=== PATIENT | female | born 1975 | race Caucasian/White ===

== ENCOUNTER 2016-04-22 18:29 | Emergency (ER) | payer BC ==
[~2016-04-22] VITALS: Ht 157.5 cm; Wt 84.4 kg
[~2016-04-22 18:29] MED LIST: ASPI-390 PO; FLUO40CA8 PO; IBUP-103 PO; PROP20TA67 PO
[2016-04-22 18:35] VITALS: Ht 157.5 cm; Wt 84.4 kg
[2016-04-22] MEDS ORDERED: SODIUM CHLORIDE 0.9% 1000ML 1,000 ML IV STA ×2 (19:40→19:44)
[2016-04-22] MEDS ORDERED: ONDANSETRON INJ 2 MG/ML 2 ML VIAL IV STA (19:44)
[2016-04-22] MEDS ORDERED: FENTANYL CITRATE INJ 50 MCG/1 ML 2 ML VIAL IV PRN (19:45)
--- NOTE | 2016-04-22 19:46 | EMERGENCY ROOM VISIT NOTE ---
History Report prepared by Mayra: Ramila Maya Under the Supervision of: Dr. Huey Castillo D.O. First contact with patient: 19:36 Chief Complaint: ABDOMINAL PAIN Stated Complaint: LOWER LEFT QUADRANT PAIN Nursing Triage Summary: Patient ambulatory to triage, states "I am having left lower quadrant pain. I have had it off and on for several months. I thought it was an ovarian cyst. I had severe pain with my period last month. Last night, I had an episode of diarrhea last night and the pain has been constant since then. I was seen at my PCP's office and they sent me here for evaluation." Patient is now unable to pass gas or stools. Patient has had five previous abdominal surgeries. Patient has had bowel obstructions. Patient reports belching a lot today. History of Present Illness The patient is a 40 year old female who presents to the Emergency Room with complaints of constant left lower quadrant abdominal pain worsening last night. The patient states that she has been experiencing this pain intermittently for the past several months. Last week she experienced her menstrual cycle which increased and worsened the pain. Last night the patient has an episode of diarrhea and since then the pain has been constant instead of the usual intermittent. She did see her PCP today and was referred to the ED. The patient does have a history of bowel obstructions, hernias and ovarian cyst. Her PCP checked for bowel obstruction and ovarian cyst which were found to be negative. She denies chest pain, trouble breathing, shortness of breath, blood thinner use , blood in stool or urine, or diverticulitis history. Source of History: patient Onset: last night Position: abdomen (LLQ) Timing: constant, worsening Associated Symptoms: + diarrhea, No SOB, No chest pain Note: Patient denies blood in stool or urine. Review of Systems See HPI for pertinent positives & negatives. A total of 10 systems reviewed and were otherwise negative. Past Medical & Surgical Medical Problems: (1) Depression (2) History of small bowel obstruction (3) Infectious mononucleosis (4) Lumbago (5) ovarian cyst (6) Reactive airway disease Surgical Problems: (1) H/O reduction mammoplasty (2) H/O umbilical hernia repair (3) History of colposcopy (4) S/P appendectomy (5) S/P cholecystectomy (6) S/p decompression of small bowel (7) S/P tubal ligation Family History Diabetes mellitus MGF PGF FH: CAD (coronary artery disease) MGF Hypertension MGF Social History Smoking Status: Never Smoker Alcohol Use: occasionally Marital Status: Housing Status: lives with significant other Occupation Status: employed Current/Historical Medications Scheduled PRN Propranolol (Inderal), 20 MG PO DAILY PRN for Anxiety Allergies Coded Allergies: Morphine (Verified Allergy, Severe, SHORTNESS OF BREATH, 04/22/16) Tolerates hydromorphone Sulfa Antibiotics (Verified Allergy, Severe, THROAT SWELLS, 04/22/16) Penicillins (Verified Allergy, Intermediate, rash, 04/22/16) Prochlorperazine (Verified Adverse Reaction, Intermediate, anxiety, ) Physical Exam Vital Signs Date Time Temp Pulse Resp B/P Pulse Ox O2 Delivery O2 Flow Rate FiO2 04/22/16 23:19 85 18 113/72 96 Room Air 04/22/16 23:08 36.9 80 18 116/60 97 04/22/16 21:52 102 04/22/16 21:41 85 18 116/60 97 Room Air 04/22/16 18:35 36.9 95 20 134/86 98 Room Air Physical Exam GENERAL: Patient is awake, alert, and in no acute distress. Patient is resting comfortably and showing no signs of anxiety EYES: The conjunctivae are clear. The pupils are round and reactive. EARS, NOSE, MOUTH AND THROAT: The nose is without any evidence of any deformity. Mucous membranes are moist tongue is midline NECK: The neck is nontender and supple. RESPIRATORY: Normal respiratory effort is noted there is no evidence of wheezing rhonchi or rales CARDIOVASCULAR: Regular rate and rhythm noted there no murmurs rubs or gallops normal S1 normal S2 GASTROINTESTINAL: Mildly distended but soft, left lower quadrant tenderness, no significant guarding or rigidity. BACK: No midline tenderness or or step-off noted range of motion in flexion extension as well as rotation no signs of muscle spasm noted MUSCULOSKELETAL/EXTREMITIES: There is no evidence of gross deformity full range of motion is noted in the hips and shoulders SKIN: There is no obvious evidence of any rash. There are no petechiae, pallor or cyanosis noted. NEUROLOGIC: Patient is awake alert and oriented x3 Medical Decision & Procedures ER Provider Diagnostic Interpretation: X ray results and stated below per my interpretation and radiology interpretation. Other radiology results per my review and radiologist interpretation: SINGLE VIEW CHEST CLINICAL HISTORY: Generalized abdominal pain. FINDINGS: An AP, portable, upright chest radiograph is compared to study dated 12/12/2015 and correlated with chest CT dated 01/31/2015. The examination is degraded by portable technique and patient rotation. The cardiomediastinal silhouette is unremarkable. The lungs and pleural spaces are clear. No pneumothorax is seen. The bony thorax is grossly intact. IMPRESSION: No active disease in the chest. Electronically signed by: Marco A Gonzales M.D. 04/22/2016 7:55 PM Dictated Date/Time: 04/22/2016 7:[address] SCAN OF THE ABDOMEN AND PELVIS WITHOUT IV CONTRAST CLINICAL HISTORY: Left flank pain. COMPARISON STUDY: Multiple prior abdominal CT scans, most recently dated 05/24/2015. TECHNIQUE: CT scan of the abdomen and pelvis is performed from the lung bases to the proximal femora. Images are reviewed in the axial, sagittal, and coronal planes. IV contrast was not administered for this examination as per the referring clinician. Note that the examination was performed in suboptimal fashion without IV contrast. Automated dose control exposure was utilized. CT DOSE: 512.41 mGy.cm FINDINGS: Lung bases: The heart is normal in size and without pericardial effusion. The lung bases are clear. There is a tiny hiatal hernia. Liver: The unenhanced liver is normal in size, contour, and attenuation. There is no intrahepatic biliary ductal dilatation. Gallbladder: Surgically absent noting clips in the gallbladder fossa. Spleen: Normal in size and attenuation. Pancreas: Unremarkable. Adrenal glands: Unremarkable. Kidneys: The unenhanced kidneys are normal in size and without hydronephrosis. There are no renal calculi identified. There is no evidence of contour deforming renal mass lesion. Abdominal vasculature: The abdominal aorta is normal in course and caliber. Bowel: The small bowel and colon are normal in course and caliber. The appendix is not identified and reported surgically absent. Peritoneum: There is no intraperitoneal free air or abdominal ascites. There is a fat-containing umbilical hernia. There is a small fat-containing hernia in the right pelvis seen on image #265, possibly incisional. Lymphadenopathy: None. Pelvic viscera: The bladder, uterus, and adnexa are normal as visualized. There are bilateral ovarian follicles. Skeletal structures: No lytic or blastic lesions are seen. A bone island is incidentally noted in the left ilium. IMPRESSION: 1. Suboptimal examination without oral and IV contrast. 2. There are no acute infectious or inflammatory findings in the abdomen or pelvis. 3. Additional findings as above. Electronically signed by: Marco A Gonzales M.D. 04/22/2016 8:12 PM Dictated Date/Time: 04/22/2016 8:06 PM Laboratory Results 04/22/16 21:16 Red Blood Count 4.48, Mean Corpuscular Volume 85.0, Mean Corpuscular Hemoglobin 29.0, Mean Corpuscular Hemoglobin Concent 34.1, Mean Platelet Volume 9.8, Neutrophils (%) (Auto) 63.9, Lymphocytes (%) (Auto) 26.8, Monocytes (%) (Auto) 7.1, Eosinophils (%) (Auto) 1.6, Basophils (%) (Auto) 0.4, Neutrophils # (Auto) 6.15, Lymphocytes # (Auto) 2.58, Monocytes # (Auto) 0.68, Eosinophils # (Auto) 0.15, Basophils # (Auto) 0.04 04/22/16 22:05 Test 04/22/16 00:00 04/22/16 21:16 04/22/16 22:05 Urine Color YELLOW Urine Appearance CLEAR (CLEAR) Urine pH 5.5 (4.5-7.5) Urine Specific [place] 1.020 (1.000-1.030) Urine Protein NEG (NEG) Urine Glucose (UA) NEG (NEG) Urine Ketones TRACE (NEG) Urine Occult Blood NEG (NEG) Urine Nitrite NEG (NEG) Urine Bilirubin NEG (NEG) Urine Urobilinogen NEG (NEG) Urine Leukocyte Esterase TRACE (NEG) Urine WBC (Auto) 1-5 /hpf (0-5) Urine RBC (Auto) 0-4 /hpf (0-4) Urine Hyaline Casts (Auto) 1-5 /lpf (0-5) Urine Epithelial Cells (Auto) >30 /lpf (0-5) Urine Bacteria (Auto) 1+ (NEG) White Blood Count 9.62 K/uL (4.8-10.8) Red Blood Count 4.48 M/uL (4.2-5.4) Hemoglobin 13.0 g/dL (12.0-16.0) Hematocrit 38.1 % (37-47) Mean Corpuscular Volume 85.0 fL (80-100) Mean Corpuscular Hemoglobin 29.0 pg (25-34) Mean Corpuscular Hemoglobin Concent 34.1 g/dl (32-36) Platelet Count 203 K/uL (130-400) Mean Platelet Volume 9.8 fL (7.4-10.4) Neutrophils (%) (Auto) 63.9 % Lymphocytes (%) (Auto) 26.8 % Monocytes (%) (Auto) 7.1 % Eosinophils (%) (Auto) 1.6 % Basophils (%) (Auto) 0.4 % Neutrophils # (Auto) 6.15 K/uL (1.4-6.5) Lymphocytes # (Auto) 2.58 K/uL (1.2-3.4) Monocytes # (Auto) 0.68 K/uL (0.11-0.59) Eosinophils # (Auto) 0.15 K/uL (0-0.5) Basophils # (Auto) 0.04 K/uL (0-0.2) RDW Standard Deviation 40.8 fL (36.4-46.3) RDW Coefficient of Variation 13.4 % (11.5-14.5) Immature Granulocyte % (Auto) 0.2 % Immature Granulocyte # (Auto) 0.02 K/uL (0.00-0.02) Anion Gap 14.0 mmol/L (3-11) Est Creatinine Clear Calc Drug Dose 94.4 ml/min Estimated GFR () 107.8 Estimated GFR (Non- 93.0 BUN/Creatinine Ratio 13.3 (10-20) Calcium Level 9.0 mg/dl (8.5-10.1) Total Bilirubin 1.0 mg/dl (0.2-1) Direct Bilirubin 0.2 mg/dl (0-0.2) Aspartate Amino Transf (AST/SGOT) 14 U/L (15-37) Alanine Aminotransferase (ALT/SGPT) 19 U/L (12-78) Alkaline Phosphatase 47 U/L (45-117) Total Protein 7.1 gm/dl (6.4-8.2) Albumin 3.5 gm/dl (3.4-5.0) Lipase 159 U/L (73-393) Human Chorionic Gonadotropin, Qual NEG (NEG) Medications Administered Medications (Trade) Dose Ordered Sig/Annie Route Start Time Stop Time Status Last Admin Dose Admin Sodium Chloride (Nss 1000ml) 1,000 ml @ 999 mls/hr Q1H1M STAT IV 04/22/16 19:40 04/22/16 20:40 DC 04/22/16 21:32 999 MLS/HR Fentanyl Citrate (Fentanyl Inj) 50 mcg Q15M PRN IV 04/22/16 19:45 04/22/16 23:33 DC 04/22/16 21:32 50 MCG Ondansetron HCl 4 mg 4 mg NOW STAT IV 04/22/16 19:44 04/22/16 19:45 DC 04/22/16 21:33 4 MG Sodium Chloride (Nss 1000ml) 1,000 ml @ 250 mls/hr Q4H STAT IV 04/22/16 19:44 04/22/16 23:33 DC 04/22/16 21:33 250 MLS/HR Hydromorphone HCl (Dilaudid Inj) 1 mg NOW STAT IV 04/22/16 22:25 04/22/16 22:26 DC 04/22/16 22:27 1 MG Oxycodone HCl (Roxicodone Immediate Rel 5MG Home Pack) 1 homepack UD ONCE PO 04/22/16 23:00 04/22/16 23:01 DC 04/22/16 23:16 1 HOMEPACK Ondansetron HCl (ZOFRAN ODT 4MG Home Pack) 1 homepack UD ONCE PO 04/22/16 23:00 04/22/16 23:01 DC 04/22/16 23:16 1 HOMEPACK ED Course 193: The patient was evaluated in room A4. A complete history and physical examination were performed. 0: Sodium Chloride 1,000 ml @ 999 mls/hr IV, Sodium Chloride 1,000 ml @ 250 mls/hr IV, Zofran Inj 4 mg IV, Fentanyl Inj 50 mcg IV. 2119: I discussed the CT reading with the patient. 2224: Dilaudid Inj 1 mg IV. 0: Zofran ODT 4 mg Home Pack 1 homepack PO, Roxicodone Immediate Rel 5 MG Home Pack 1 homepack PO. 2300: Upon reevaluation, the patient is hemodynamically stable. I discussed the results and treatment plan with her. She verbalized agreement of the treatment plan. She was discharged home. Medical Decision Differential diagnosis: Etiologies such as appendicitis, diverticulitis, PUD, biliary pathology, UTI, pancreatitis, obstruction, mesenteric ischemia, aortic pathology, infections, inflammatory bowel disease, renal colic, as well as others were entertained. Nursing notes reviewed. The patient is a 40-year-old female who presented to the emergency department for an evaluation of left lower quadrant abdominal pain. The patient reports she went to see her family doctor and was sent to the emergency department. She has a history of adhesions and multiple abdominal surgeries in the past. It was felt possible that she had a bowel obstruction. The patient was treated with IV fluids IV pain medicine and IV antiemetics emergency department. On subsequent reevaluation she was feeling much better. I discussed the patient's laboratory and radiographic studies with her. She was encouraged to rest and avoid any strenuous activity. She was encouraged to drink plenty of clear liquids. She was also encouraged to discuss the possibility with her family doctor that she may require further studies or possibly a referral to a display designer to further evaluate the cause of her pain. She was also encouraged to return to the emergency Department immediately if symptoms change worsen or the need arises. Impression Primary Impression: LLQ abdominal pain Scribe Attestation The scribe's documentation has been prepared under my direction and personally reviewed by me in its entirety. I confirm that the note above accurately reflects all work, treatment, procedures, and medical decision making performed by me. Departure Information Dispostion Home / Self-Care Referrals Astrid Partida MD (PCP) Forms Call Back Authorization, HOME CARE DOCUMENTATION FORM, IMPORTANT VISIT INFORMATION, Work Instructions Patient Instructions ED Abd Pain Unkn Cause Fem, My [facility] Additional Instructions Call your family in the morning to schedule a follow-up appointment. Continue all medications as prescribed. Drink plenty clear liquids. Discussed the possibility with your family doctor that you may require further studies or possibly a referral to a display designer to further evaluate the cause of your pain.
--- NOTE | 2016-04-22 19:57 | DIAGNOSTIC IMAGING REPORT ---
SINGLE VIEW CHEST CLINICAL HISTORY: Generalized abdominal pain. FINDINGS: An AP, portable, upright chest radiograph is compared to study dated 12/12/2015 and correlated with chest CT dated 01/31/2015. The examination is degraded by portable technique and patient rotation. The cardiomediastinal silhouette is unremarkable. The lungs and pleural spaces are clear. No pneumothorax is seen. The bony thorax is grossly intact. IMPRESSION: No active disease in the chest. Electronically signed by: Marco A Gonzales M.D. 04/22/2016 7:55 PM Dictated Date/Time: 04/22/2016 7:55 PM
[2016-04-22 20:02] LABS: URINE APPEARANCE CLEAR (CLEAR); URINE BILIRUBIN NEG (NEG); URINE COLOR YELLOW; URINE EPITHELIAL CELL AUTO >30 /lpf (0-5); URINE NITRITE NEG (NEG); URINE PH 5.5 (4.5-7.5); UROBILINOGEN NEG (NEG)
[2016-04-22 20:08] LABS: MANUAL MICROSCOPIC REQUIRED? NO; REVIEW REQ? NO
--- NOTE | 2016-04-22 20:14 | DIAGNOSTIC IMAGING REPORT ---
CT SCAN OF THE ABDOMEN AND PELVIS WITHOUT IV CONTRAST CLINICAL HISTORY: Left flank pain. COMPARISON STUDY: Multiple prior abdominal CT scans, most recently dated 05/24/2015. TECHNIQUE: CT scan of the abdomen and pelvis is performed from the lung bases to the proximal femora. Images are reviewed in the axial, sagittal, and coronal planes. IV contrast was not administered for this examination as per the referring clinician. Note that the examination was performed in suboptimal fashion without IV contrast. Automated dose control exposure was utilized. CT DOSE: 512.41 mGy.cm FINDINGS: Lung bases: The heart is normal in size and without pericardial effusion. The lung bases are clear. There is a tiny hiatal hernia. Liver: The unenhanced liver is normal in size, contour, and attenuation. There is no intrahepatic biliary ductal dilatation. Gallbladder: Surgically absent noting clips in the gallbladder fossa. Spleen: Normal in size and attenuation. Pancreas: Unremarkable. Adrenal glands: Unremarkable. Kidneys: The unenhanced kidneys are normal in size and without hydronephrosis. There are no renal calculi identified. There is no evidence of contour deforming renal mass lesion. Abdominal vasculature: The abdominal aorta is normal in course and caliber. Bowel: The small bowel and colon are normal in course and caliber. The appendix is not identified and reported surgically absent. Peritoneum: There is no intraperitoneal free air or abdominal ascites. There is a fat-containing umbilical hernia. There is a small fat-containing hernia in the right pelvis seen on image #265, possibly incisional. Lymphadenopathy: None. Pelvic viscera: The bladder, uterus, and adnexa are normal as visualized. There are bilateral ovarian follicles. Skeletal structures: No lytic or blastic lesions are seen. A bone island is incidentally noted in the left ilium. IMPRESSION: 1. Suboptimal examination without oral and IV contrast. 2. There are no acute infectious or inflammatory findings in the abdomen or pelvis. 3. Additional findings as above. Electronically signed by: Marco A Gonzales M.D. 04/22/2016 8:12 PM Dictated Date/Time: 04/22/2016 8:06 PM
[2016-04-22 21:41] LABS: BASO % 0.4 %; BASO ABS # 0.04 K/uL (0-0.2); COMPLETE YES; EOS % 1.6 %; HEMATOCRIT 38.1 % (37-47); IG% 0.2 %; LYMPH % 26.8 %; LYMPH ABS # 2.58 K/uL (1.2-3.4); MEAN CORPUSCULAR HGB CONC 34.1 g/dl (32-36); MEAN PLATELET VOLUME 9.8 fL (7.4-10.4); MONO % 7.1 %; NEUT % 63.9 %; PLATELET COUNT 203 K/uL (130-400); RED BLOOD COUNT 4.48 M/uL (4.2-5.4); WHITE BLOOD COUNT 9.62 K/uL (4.8-10.8)
[2016-04-22] MEDS ORDERED: HYDROmorphone INJ 1 MG/ML SYR IV STA (22:25)
[2016-04-22 22:29] LABS: BUN/CREATININE RATIO 13.3 (10-20); CREATININE 0.79 mg/dl (0.60-1.20); POTASSIUM 3.7 mmol/L (3.5-5.1)
[2016-04-22 22:50] LABS: PREG INTERNAL NEGATIVE QC NEG CLEAR BACKGROUND; PREG INTERNAL POSITIVE QC POS CONTROL LINE
[2016-04-22] MEDS ORDERED: ONDANSETRON HOME PACK 4MG OD TAB PO ONE (23:00)
[2016-04-22] MEDS ORDERED: OXYCODONE IR HOME PACK PO ONE (23:00)
[2016-04-22 23:08] VITALS: TEMP 36.9
[2016-04-22 23:19] VITALS: BP 113/72; PULSE 85; O2SAT 96
[2016-06-03] MEDS ORDERED: IBUP1TAB55 PO (09:58)
== END 2016-04-22 23:15 | disposition home or self-care (01) ==
LOC: C.EDB 18:31 → C.EDA 23:15
DX: R10.32 Left lower quadrant pain (principal); F32.9 Major depressive disorder, single episode, unspecified; Z88.5 Allergy status to narcotic agent; Z88.2 Allergy status to sulfonamides; Z88.0 Allergy status to penicillin; Z90.49 Acquired absence of other specified parts of digestive tract; Z83.3 Family history of diabetes mellitus; Z82.49 Family history of ischemic heart disease and other diseases of the circulatory system

== ENCOUNTER 2016-05-16 02:13 | Emergency (ER) | payer BC ==
[~2016-05-16] VITALS: Ht 157.5 cm; Wt 82.4 kg
[~2016-05-16 02:13] MED LIST changes: -DIPH25TA32 PO; -IBUP1TAB55 PO
[2016-05-16 02:18] VITALS: TEMP 37; Ht 157.5 cm; Wt 82.4 kg
[2016-05-16] MEDS ORDERED: SODIUM CHLORIDE 0.9% 1000ML 1,000 ML IV STA (02:37)
[2016-05-16] MEDS ORDERED: ONDANSETRON INJ 2 MG/ML 2 ML VIAL IV STA (02:37)
[2016-05-16] MEDS ORDERED: HYDROmorphone INJ 2 MG/ML SYR/VIAL IV PRN (02:45)
[2016-05-16 03:16] LABS: BASO % 0.4 %; BASO ABS # 0.03 K/uL (0-0.2); COMPLETE YES; EOS % 2.1 %; HEMATOCRIT 37.5 % (37-47); IG% 0.1 %; LYMPH % 26.9 %; LYMPH ABS # 2.13 K/uL (1.2-3.4); MEAN CELL VOLUME 83.7 fL (80-100); MEAN CORPUSCULAR HGB CONC 34.7 g/dl (32-36); MEAN PLATELET VOLUME 9.2 fL (7.4-10.4); MONO % 6.8 %; NEUT % 63.7 %; PLATELET COUNT 219 K/uL (130-400); RED BLOOD COUNT 4.48 M/uL (4.2-5.4); WHITE BLOOD COUNT 7.91 K/uL (4.8-10.8)
[2016-05-16 03:33] LABS: BUN/CREATININE RATIO 13.4 (10-20); CALCIUM 8.7 mg/dl (8.5-10.1); CREATININE 0.77 mg/dl (0.60-1.20); POTASSIUM 3.7 mmol/L (3.5-5.1)
[2016-05-16 04:03] LABS: URINE APPEARANCE CLEAR (CLEAR); URINE BILIRUBIN NEG (NEG); URINE COLOR YELLOW; URINE EPITHELIAL CELL AUTO >30 /lpf (0-5); URINE NITRITE NEG (NEG); URINE SPECIFIC GRAVITY 1.014 (1.000-1.030); UROBILINOGEN NEG (NEG); ZZUR CULT IF INDIC CLEAN CATCH YES
[2016-05-16 04:06] LABS: MANUAL MICROSCOPIC REQUIRED? NO; REVIEW REQ? NO
--- NOTE | 2016-05-16 04:44 | EMERGENCY ROOM VISIT NOTE ---
History Report prepared by Roxibcarmen: Benita James Under the Supervision of: Dr. Alexi Valle D.O. First contact with patient: 02:31 Chief Complaint: ABDOMINAL PAIN Stated Complaint: ABD PAIN History of Present Illness The patient is a 41 year old female who presents to the Emergency Room with complaints of persistent right lower quadrant pain that began several hours ago. The patient notes that she is a nurse at [employer] and caught the GI bug 4 days ago. Her symptoms improved and she went back to work today. Early this morning, she woke up with the sensation of a ball in her right lower quadrant. She also felt nauseated and as if her abdomen was full. She tried to have a bowel movement multiple times earlier in the day yesterday but was not able to. Several hours ago she developed intense localized abdominal pain to the right lower quadrant and diarrhea. She estimates having about 16 episodes of diarrhea in the past 5.5 hours. Currently, she also complains of belching. She has a history of a cholecystectomy, appendectomy, hernia repair and small bowel obstruction. She notes that she currently has a small umbilical hernia and a hiatal hernia. Source of History: patient Onset: several hours ago Position: abdomen (RLQ) Timing: other (persistent) Associated Symptoms: + diarrhea Note: Other symptoms: belching Review of Systems See HPI for pertinent positives & negatives. A total of 10 systems reviewed and were otherwise negative. Past Medical & Surgical Medical Problems: (1) Depression (2) History of small bowel obstruction (3) Infectious mononucleosis (4) Lumbago (5) ovarian cyst (6) Reactive airway disease Surgical Problems: (1) H/O reduction mammoplasty (2) H/O umbilical hernia repair (3) History of colposcopy (4) S/P appendectomy (5) S/P cholecystectomy (6) S/p decompression of small bowel (7) S/P tubal ligation Family History Diabetes mellitus MGF PGF FH: CAD (coronary artery disease) MGF Hypertension MGF Social History Smoking Status: Never Smoker Alcohol Use: occasionally Marital Status: Housing Status: lives with significant other Occupation Status: employed Current/Historical Medications Scheduled PRN Propranolol (Inderal), 20 MG PO DAILY PRN for Anxiety Allergies Coded Allergies: Morphine (Verified Allergy, Severe, SHORTNESS OF BREATH, 04/22/16) Tolerates hydromorphone Sulfa Antibiotics (Verified Allergy, Severe, THROAT SWELLS, 04/22/16) Penicillins (Verified Allergy, Intermediate, rash, 04/22/16) Prochlorperazine (Verified Adverse Reaction, Intermediate, anxiety, ) Fentanyl (Verified Adverse Reaction, Unknown, trouble breathing, 05/16/16) Physical Exam Vital Signs Date Time Temp Pulse Resp B/P Pulse Ox O2 Delivery O2 Flow Rate FiO2 05/16/16 03:32 69 20 115/65 100 Room Air 05/16/16 02:18 37.0 93 20 125/85 97 Room Air Physical Exam CONSTITUTIONAL/VITAL SIGNS: Reviewed / noted above. GENERAL: Non-toxic in appearance. INTEGUMENTARY: Warm, dry, and [place]. HEAD: Normocephalic. EYES: without scleral icterus or trauma. ENT/OROPHARYNX: clear and moist. LYMPHADENOPATHY/NECK: Is supple without lymphadenopathy or meningismus. RESPIRATORY: Lungs clear and equal. CARDIOVASCULAR: Regular rate and rhythm. GI/ABDOMEN: Soft and nontender. No organomegaly or pulsatile mass. No rebound or guarding. Hyperactive bowel sounds. EXTREMITIES: Warm and well perfused. BACK: No CVA tenderness. NEUROLOGICAL: Intact without focal deficits. PSYCHIATRIC: normal affect. MUSCULOSKELETAL: Normally developed with good muscle tone. Medical Decision & Procedures ER Provider Diagnostic Interpretation: X-ray per my interpretation: Chest-abdominal series: No acute disease in the chest. No pneumonia, pneumothorax, or free air. Some air fluid levels as well as air at the rectum. No obvious bowel obstruction. Laboratory Results 05/16/16 03:10 Red Blood Count 4.48, Mean Corpuscular Volume 83.7, Mean Corpuscular Hemoglobin 29.0, Mean Corpuscular Hemoglobin Concent 34.7, Mean Platelet Volume 9.2, Neutrophils (%) (Auto) 63.7, Lymphocytes (%) (Auto) 26.9, Monocytes (%) (Auto) 6.8, Eosinophils (%) (Auto) 2.1, Basophils (%) (Auto) 0.4, Neutrophils # (Auto) 5.03, Lymphocytes # (Auto) 2.13, Monocytes # (Auto) 0.54, Eosinophils # (Auto) 0.17, Basophils # (Auto) 0.03 05/16/16 03:10 Test 05/16/16 03:10 05/16/16 03:48 White Blood Count 7.91 K/uL (4.8-10.8) Red Blood Count 4.48 M/uL (4.2-5.4) Hemoglobin 13.0 g/dL (12.0-16.0) Hematocrit 37.5 % (37-47) Mean Corpuscular Volume 83.7 fL (80-100) Mean Corpuscular Hemoglobin 29.0 pg (25-34) Mean Corpuscular Hemoglobin Concent 34.7 g/dl (32-36) Platelet Count 219 K/uL (130-400) Mean Platelet Volume 9.2 fL (7.4-10.4) Neutrophils (%) (Auto) 63.7 % Lymphocytes (%) (Auto) 26.9 % Monocytes (%) (Auto) 6.8 % Eosinophils (%) (Auto) 2.1 % Basophils (%) (Auto) 0.4 % Neutrophils # (Auto) 5.03 K/uL (1.4-6.5) Lymphocytes # (Auto) 2.13 K/uL (1.2-3.4) Monocytes # (Auto) 0.54 K/uL (0.11-0.59) Eosinophils # (Auto) 0.17 K/uL (0-0.5) Basophils # (Auto) 0.03 K/uL (0-0.2) RDW Standard Deviation 39.3 fL (36.4-46.3) RDW Coefficient of Variation 13.0 % (11.5-14.5) Immature Granulocyte % (Auto) 0.1 % Immature Granulocyte # (Auto) 0.01 K/uL (0.00-0.02) Anion Gap 10.0 mmol/L (3-11) Est Creatinine Clear Calc Drug Dose 94.7 ml/min Estimated GFR () 110.4 Estimated GFR (Non- 95.2 BUN/Creatinine Ratio 13.4 (10-20) Calcium Level 8.7 mg/dl (8.5-10.1) Total Bilirubin 0.7 mg/dl (0.2-1) Direct Bilirubin 0.1 mg/dl (0-0.2) Aspartate Amino Transf (AST/SGOT) 18 U/L (15-37) Alanine Aminotransferase (ALT/SGPT) 23 U/L (12-78) Alkaline Phosphatase 45 U/L (45-117) Total Protein 7.3 gm/dl (6.4-8.2) Albumin 3.5 gm/dl (3.4-5.0) Lipase 205 U/L (73-393) Urine Color YELLOW Urine Appearance CLEAR (CLEAR) Urine pH 6.0 (4.5-7.5) Urine Specific [place] 1.014 (1.000-1.030) Urine Protein NEG (NEG) Urine Glucose (UA) NEG (NEG) Urine Ketones NEG (NEG) Urine Occult Blood NEG (NEG) Urine Nitrite NEG (NEG) Urine Bilirubin NEG (NEG) Urine Urobilinogen NEG (NEG) Urine Leukocyte Esterase SMALL (NEG) Urine WBC (Auto) 1-5 /hpf (0-5) Urine RBC (Auto) 5-10 /hpf (0-4) Urine Hyaline Casts (Auto) 1-5 /lpf (0-5) Urine Epithelial Cells (Auto) >30 /lpf (0-5) Urine Bacteria (Auto) 2+ (NEG) Urine Test NEG (NEG) Date/Time Source Procedure Growth Status 05/16/16 03:00 Stool C.difficile Toxin B Gene (PCR) - Final No C. difficile toxin B gene detected Complete Laboratory results as stated above per my review. Medications Administered Medications (Trade) Dose Ordered Sig/Annie Route Start Time Stop Time Status Last Admin Dose Admin Sodium Chloride (Nss 1000ml) 1,000 ml @ 999 mls/hr Q1H1M STAT IV 05/16/16 02:37 05/16/16 03:37 DC 05/16/16 02:37 999 MLS/HR Ondansetron HCl (Zofran Inj) 4 mg NOW STAT IV 05/16/16 02:37 05/16/16 02:39 DC 05/16/16 02:37 4 MG Hydromorphone HCl (Dilaudid Inj) 2 mg Q1H PRN IV 05/16/16 02:45 05/30/16 02:44 05/16/16 03:04 2 MG ED Course 0234: Previous medical records were reviewed. The patient was evaluated in room B12. A complete history and physical examination was performed. 0237: Ordered Zofran Inj 4 mg IV, NSS 1000 ml @ 999 mls/hr IV. 0245: Ordered Dilaudid Inj 2 mg IV. 0446: On reevaluation, the patient is feeling better. I discussed the results and findings with the patient. She verbalized agreement of the treatment plan. The patient was discharged home. Medical Decision Differential diagnosis: Etiologies such as gastroenteritis, food borne illness, infections, appendicitis , diverticulitis, inflammatory bowel disease, obstruction, GI bleed, biliary pathology, as well as others were entertained. This is a 30-year-old female who presents to the ED with a chief complaint of nausea and diarrhea. The patient states that she had a GI bug on Friday and then seemed to get better. Today she went back to work. She had some discomfort on the right side of her abdomen since 4 AM yesterday. She developed nausea and then 16 episodes of diarrhea since 9 PM. She reports that she has been belching a lot and has some discomfort in the right lower quadrant. She has a history of appendectomy. Her physical exam did not reveal any focal tenderness. She has hyperactive bowel sounds. Her vital signs are stable. CBC was normal. Complete metabolic panel was normal. Urine appears contaminated. She is not . Lipase was negative. C. Diff is negative. The patient was told the results. She was treated with IV fluids and IV Dilaudid. She was given IV Zofran. She was told the results of the test per she is felt to be stable for discharge. Impression Primary Impression: Diarrhea Scribe Attestation The scribe's documentation has been prepared under my direction and personally reviewed by me in its entirety. I confirm that the note above accurately reflects all work, treatment, procedures, and medical decision making performed by me. Departure Information Dispostion Home / Self-Care Referrals Astrid Partida MD (PCP) Patient Instructions [facility] Additional Instructions Follow-up with your doctor for further care and evaluation in 1-2 days. Return to the emergency department for worsening or new symptoms or any concerns..
[2016-05-16 04:56] VITALS: BP 97/54; PULSE 70; O2SAT 100
--- NOTE | 2016-05-16 07:56 | DIAGNOSTIC IMAGING REPORT ---
PA CHEST WITH ABDOMINAL SERIES CLINICAL HISTORY: Generalized abdominal pain. Nausea and vomiting. Diarrhea. FINDINGS: A PA chest radiograph is compared to study dated 04/22/2016. The cardiomediastinal silhouette is unremarkable. The lungs and pleural spaces are clear. No pneumothorax is seen. The bony thorax is grossly intact. Supine and erect abdominal radiographs are correlated with abdominal CT dated 04/22/2016. There is a nonobstructed abdominal bowel gas pattern. Cholecystectomy clips are seen in the right upper quadrant. Air-fluid levels are noted throughout the colon on the upright view. No evidence of intraperitoneal free air is seen. A calcified phlebolith is again noted in the left hemipelvis. There is no radiographic evidence of nephrolithiasis. The lumbosacral spine and bony pelvis appear intact. IMPRESSION: 1. No active disease in the chest. 2. Nonobstructed abdominal bowel gas pattern. 3. Air-fluid levels are noted throughout the colon on the upright view. Correlate clinically for evidence of a diarrheal illness. Electronically signed by: Marco A Gonzales M.D. 05/16/2016 7:54 AM Dictated Date/Time: 05/16/2016 7:53 AM
[2016-06-03] MEDS ORDERED: IBUP1TAB55 PO (09:58)
== END 2016-05-16 04:57 | disposition home or self-care (01) ==
LOC: C.EDB 02:14
DX: R19.7 Diarrhea, unspecified (principal); R10.31 Right lower quadrant pain; R11.0 Nausea; F32.9 Major depressive disorder, single episode, unspecified; N83.209 Unspecified ovarian cyst, unspecified side; K56.60 Unspecified intestinal obstruction; J45.909 Unspecified asthma, uncomplicated; Z90.49 Acquired absence of other specified parts of digestive tract; Z98.51 Tubal ligation status; Z98.890 Other specified postprocedural states; Z88.0 Allergy status to penicillin; Z88.2 Allergy status to sulfonamides; Z88.5 Allergy status to narcotic agent; Z88.8 Allergy status to other drugs, medicaments and biological substances; Z83.3 Family history of diabetes mellitus; Z82.49 Family history of ischemic heart disease and other diseases of the circulatory system

== ENCOUNTER → 2016-05-16 | Outpatient (CLI) | payer BC ==
[~2016-05-16] MED LIST changes: -ASPI-390 PO; +DIPH25TA32 PO; -FLUO40CA8 PO; -IBUP-103 PO; +IBUP1TAB55 PO
--- NOTE | 2016-05-16 15:32 | DIAGNOSTIC IMAGING REPORT ---
CT SCAN OF THE ABDOMEN AND PELVIS WITHOUT IV CONTRAST CLINICAL HISTORY: Abdominal distention. COMPARISON STUDY: Multiple prior abdominal CT scans, most recently dated 04/22/2016. TECHNIQUE: CT scan of the abdomen and pelvis is performed from the lung bases to the proximal femora. Images are reviewed in the axial, sagittal, and coronal planes. IV contrast was not administered for this examination as per the referring clinician. Note that the examination was performed in suboptimal fashion without IV contrast. Automated dose control exposure was utilized. CT DOSE: 475.74 mGy.cm FINDINGS: Lung bases: The heart is normal in size and without pericardial effusion. The lung bases are clear. There is a tiny hiatal hernia. Liver: The unenhanced liver is normal in size, contour, and attenuation. There is no intrahepatic biliary ductal dilatation. Gallbladder: Surgically absent noting clips in the gallbladder fossa. Spleen: Normal in size and attenuation. Pancreas: Unremarkable. Adrenal glands: Unremarkable. Kidneys: The unenhanced kidneys are normal in size and without hydronephrosis. There are no renal calculi identified. There is no evidence of contour deforming renal mass lesion. Abdominal vasculature: The abdominal aorta is normal in course and caliber. Bowel: The small bowel and colon are normal in course and caliber. The appendix is not identified and reported surgically absent. Peritoneum: There is no intraperitoneal free air or abdominal ascites. There is a fat-containing umbilical hernia. There is a small fat-containing hernia in the right pelvis seen on image #263, possibly incisional. Lymphadenopathy: None. Pelvic viscera: The bladder, uterus, and adnexa are normal as visualized. There are bilateral ovarian follicles. Skeletal structures: No lytic or blastic lesions are seen. Bone islands are incidentally noted in the left ilium and the left sacral wing. IMPRESSION: 1. Suboptimal examination without oral and IV contrast. 2. There are no acute infectious or inflammatory findings in the abdomen or pelvis and there has been no significant change from 04/22/2016. 3. Additional findings as above. Electronically signed by: Marco A Gonzales M.D. 05/16/2016 3:31 PM Dictated Date/Time: 05/16/2016 3:28 PM
== END | disposition home or self-care (01) ==
LOC: C.CTS 15:14
PROVIDERS: ATTEND Nurse Practitioner Family
DX: R14.0 Abdominal distension (gaseous) (principal); R10.32 Left lower quadrant pain; R50.9 Fever, unspecified; Z98.890 Other specified postprocedural states; R19.7 Diarrhea, unspecified; R11.0 Nausea; K42.0 Umbilical hernia with obstruction, without gangrene

== ENCOUNTER → 2016-06-26 | Day surgery (SDC) | payer BC ==
[2016-06-03 09:59] VITALS: Ht 157.5 cm; Wt 81.8 kg
[~2016-06-26] VITALS: Ht 157.5 cm; Wt 81.8 kg
[~2016-06-26] MED LIST changes: +DIPH25TA32 PO; +IBUP1TAB55 PO; +LIDOCAINE HCL 2% 2 ML VIAL (20MG/ML) ONE; -PROP20TA67 PO; +PROPOFOL IV EMULSION 10 MG/ML 20 ML VIAL IV ONE; +SODIUM CHLORIDE 0.9% 500ML 500 ML IV ONE
[2016-06-26 13:53] VITALS: TEMP 36.8
--- NOTE | 2016-06-26 14:27 | Endo History and Physical ---
History & Physical Date of Service: Jun 26, 2016. Chief Complaint: LLQ pain and abdominal distention Referring Physician: Dr.John Cortes History of Present Illness LLQ abd pain Past Medical History Kidney Disease Past Surgical History Hx Cardiac Surgery: Yes (HEART CATH, NO STENT) Hx Internal Defibrillator: No Hx Pacemaker: No Hx Abdominal Surgery: Yes (4-5 BOWEL OBSTRUCTIONS AND HERNIA REPAIRS,tubal ligation) Hx of Implantable Prosthesis: No Hx Post-Op Nausea and Vomiting: No Hx Cancer Surgery: No Hx Thoracic Surgery: No Hx Orthopedic: No Hx Urinary Tract Surgery: No Family History Esophogeal CA Social History Smoking Status: Never Smoker Hx Substance Use: No Hx Alcohol Use: Yes (OCCASIONAL/SOCIAL) Allergies Coded Allergies: Morphine (Verified Allergy, Severe, SHORTNESS OF BREATH, 06/03/16) Tolerates hydromorphone Sulfa Antibiotics (Verified Allergy, Severe, THROAT SWELLS, 06/03/16) Penicillins (Verified Allergy, Intermediate, rash, 06/03/16) Prochlorperazine (Verified Adverse Reaction, Intermediate, anxiety, 06/03/16 ) Fentanyl (Verified Adverse Reaction, Unknown, trouble breathing, 06/03/16) Current Medications Reported Home Medications Medications Dose Route/Sig Max Daily Dose Days Date Category Ibuprofen Pm (Ibuprofen-Diphenhydramine Citr) 1 Tab Tab 1 Tab PO HS PRN 06/03/16 Reported Vital Signs Weight (Kilograms): 81.82 Height (Feet): 5 Height (Inches): 2 Date Time Temp Pulse Resp B/P Pulse Ox O2 Delivery O2 Flow Rate FiO2 06/26/16 13:53 36.8 87 20 129/71 99 Room Air Physical Exam AAO x3 Nl s1s2 Lungs CTA Abd soft NT/ND + BS - CCE Assessment and Plan colonoscopy
--- NOTE | 2016-06-26 14:48 | Discharge Instructions ---
Endoscopy Patient Instructions Date / Procedure(s) Performed Jun 26, 2016. Colonoscopy Allergy Information Coded Allergies: Morphine (Verified Allergy, Severe, SHORTNESS OF BREATH, 06/03/16) Tolerates hydromorphone Sulfa Antibiotics (Verified Allergy, Severe, THROAT SWELLS, 06/03/16) Penicillins (Verified Allergy, Intermediate, rash, 06/03/16) Prochlorperazine (Verified Adverse Reaction, Intermediate, anxiety, 06/03/16 ) Fentanyl (Verified Adverse Reaction, Unknown, trouble breathing, 06/03/16) Discharge Date / Findings Jun 26, 2016. normal colon Medication Instructions Restart Stopped Medication(s): Reported Home Medications Medications Dose Route/Sig Max Daily Dose Days Date Category Ibuprofen Pm (Ibuprofen-Diphenhydramine Citr) 1 Tab Tab 1 Tab PO HS PRN 06/03/16 Reported Reported Home Medications Medications Dose Route/Sig Max Daily Dose Days Date Category Ibuprofen Pm (Ibuprofen-Diphenhydramine Citr) 1 Tab Tab 1 Tab PO HS PRN 06/03/16 Reported Provider Instructions Activity Restrictions - No exercising or heavy lifting for 24 hours. - Do not drink alcohol the day of the procedure. - Do not drive a car or operate machinery until the day after the procedure. - Do not make any important decisions or sign important papers in 24 hours after the procedure. Following Day: - Return to full activity which may include returning to work/school. Diet Start your diet with liquids and light foods (jello, soup, juice, toast). Then eat your usual diet if not nauseated. Treatment For Common After Affects For mild abdominal pain, bloating, or excessive gas: - Rest - Eat lightly - Lie on right side Follow-Up Information Follow-up with Dr.John Cortes as scheduled Anesthesia Information What You Should Know You have had a procedure that required some medicine to reduce anxiety and discomfort. This treatment is called moderate sedation. After receiving the treatment, you may be sleepy, but you will be able to breathe on your own. The effects of the treatment may last for several hours. Follow these instructions along with Activity/Diet recommendations noted above: * Do NOT do anything where dizziness or clumsiness would be dangerous. * Rest quietly at home today, then you can be up and about tomorrow. * Have a responsible person stay with you the rest of today. * You may have had an I.V. today. If so, you may take the dressing off later today. Recommendations Call your doctor if: * Trouble breathing * Continuous vomiting for more than 24 hours * Temperature above 101 degrees * Severe abdominal pain or bloating * Pain not relieved by pain medicine ordered * There is increased drainage or redness from any incision * A large amount of rectal bleeding greater than 2-3 tablespoons. (If you had a polyp/s removed or have hemorrhoids, a small amount of blood - from the rectum is to be expected.) * You have any unanswered questions or concerns. IN THE EVENT OF A SERIOUS EMERGENCY, GO TO THE NEAREST EMERGENCY ROOM Your discharge instructions were prepared by provider Maurizio Carter. Patient Instructions Signature Page Kenzie Chao Patient (or Guardian) Signature/Date: I have read and understand the instructions given to me by my caregivers. Caregiver/RN/Doctor Signature/Date: The above-named patient and/or guardian has received patient instructions on this date. + Original Patient Signature Page (only) stays with chart. Please make copy for patient.
--- NOTE | 2016-06-26 14:51 | GI REPORT ---
Procedure Date: 06/26/2016 2:26 PM Procedure: Colonoscopy Indications: Abdominal pain in the left lower quadrant Medicines: Propofol per Anesthesia Complications: No immediate complications. Estimated blood loss: None. Estimated Blood Loss: Estimated blood loss: none. Procedure: Pre-Anesthesia Assessment: - Prior to the procedure, a History and Physical was performed, and patient medications and allergies were reviewed. The patient's tolerance of previous anesthesia was also reviewed. The risks and benefits of the procedure and the sedation options and risks were discussed with the patient. All questions were answered, and informed consent was obtained. Prior Anticoagulants: The patient has taken no previous anticoagulant or antiplatelet agents. ASA Grade Assessment: II - A patient with mild systemic disease. After reviewing the risks and benefits, the patient was deemed in satisfactory condition to undergo the procedure. After I obtained informed consent, the scope was passed under direct vision. Throughout the procedure, the patient's blood pressure, pulse, and oxygen saturations were monitored continuously. The scope was introduced through the anus and advanced to the terminal ileum, with identification of the appendiceal orifice and IC valve. The colonoscopy was performed without difficulty. The patient tolerated the procedure well. The quality of the bowel preparation was good. Findings: The perianal and digital rectal examinations were normal. Pertinent negatives include normal sphincter tone, no palpable rectal lesions and no anal lesion or abnormality was detected. The colon (entire examined portion) appeared normal. The terminal ileum appeared normal. The retroflexed view of the distal rectum and anal verge was normal and showed no anal or rectal abnormalities. Impression: - The entire examined colon is normal. - The examined portion of the ileum was normal. - The distal rectum and anal verge are normal on retroflexion view. - No specimens collected. Recommendation: - Discharge patient to home (ambulatory). - Resume previous diet. - Continue present medications. - Return to GI clinic with Dr Pérez as previously scheduled. MD Maurizio Bell MD 06/26/2016 2:52:07 PM This report has been signed electronically. Note Initiated On: 06/26/2016 2:26 PM I attest to the content of the Intraoperative Record and orders documented therein, exceptions below
--- NOTE | 2016-06-26 15:17 | Anesthesiology Progress Note ---
Anesthesia Post Op Note Date & Time Jun 26, 2016 at 15:17 Vital Signs Pain Intensity: 0 Vital Signs Past 12 Hours Date Time Temp Pulse Resp B/P Pulse Ox O2 Delivery O2 Flow Rate FiO2 06/26/16 15:12 83 18 115/66 100 Room Air 06/26/16 14:50 85 18 94/49 99 Room Air 06/26/16 13:53 36.8 87 20 129/71 99 Room Air Notes Mental Status: alert / awake / arousable, participated in evaluation Pt Amnestic to Procedure: Yes Nausea / Vomiting: adequately controlled Pain: adequately controlled Airway Patency, RR, SpO2: stable & adequate BP & HR: stable & adequate Hydration State: stable & adequate Anesthetic Complications: no major complications apparent
[2016-06-26 15:26] VITALS: BP 102/75; PULSE 72; O2SAT 99
== END | disposition home or self-care (01) ==
LOC: C.GI 13:01
PROVIDERS: ATTEND Internal Medicine Gastroenterology
DX: R10.32 Left lower quadrant pain (principal); R14.0 Abdominal distension (gaseous); N28.9 Disorder of kidney and ureter, unspecified; Z98.51 Tubal ligation status; Z80.0 Family history of malignant neoplasm of digestive organs; Z88.5 Allergy status to narcotic agent; Z88.2 Allergy status to sulfonamides; Z88.0 Allergy status to penicillin; Z88.8 Allergy status to other drugs, medicaments and biological substances; E66.9 Obesity, unspecified; F41.9 Anxiety disorder, unspecified; F32.9 Major depressive disorder, single episode, unspecified

== ENCOUNTER 2016-12-03 20:15 | Emergency (ER) | payer BC ==
[~2016-12-03] VITALS: Ht 157.5 cm; Wt 84.9 kg
[~2016-12-03 20:15] MED LIST changes: -DIPH25TA32 PO; -LIDOCAINE HCL 2% 2 ML VIAL (20MG/ML) ONE; -PROPOFOL IV EMULSION 10 MG/ML 20 ML VIAL IV ONE; -SODIUM CHLORIDE 0.9% 500ML 500 ML IV ONE
[2016-12-03 20:32] VITALS: TEMP 36.6; Ht 157.5 cm; Wt 84.9 kg
[2016-12-03] MEDS ORDERED: KETOROLAC TROMETHAMINE 30 MG/ML VIAL IV STA ×2 (21:29→23:29)
[2016-12-03] MEDS ORDERED: SODIUM CHLORIDE 0.9% 1000ML 1,000 ML IV STA ×2 (21:29)
[2016-12-03] MEDS ORDERED: ALBUT/IPRATROP 3MG/0.5MG NEB 3 ML VIAL INH STA (21:29)
[2016-12-03] MEDS ORDERED: DIPH25TA32 PO (21:48)
--- NOTE | 2016-12-03 22:12 | DIAGNOSTIC IMAGING REPORT ---
CHEST ONE VIEW PORTABLE CLINICAL HISTORY: CHEST PAIN pain COMPARISON STUDY: 05/16/2016 FINDINGS: The bones soft tissues and hemidiaphragms are normal. The cardiomediastinal silhouette is normal. The lungs are clear. The pulmonary vasculature is normal. IMPRESSION: Negative chest. The above report was generated using voice recognition software. It may contain grammatical, syntax or spelling errors. Electronically signed by: Lawrence Yousif M.D. 12/03/2016 10:11 PM Dictated Date/Time: 12/03/2016 10:11 PM
[2016-12-03 22:30] VITALS: O2SAT 98
[2016-12-03 22:45] LABS: BASO % 0.3 %; BASO ABS # 0.03 K/uL (0-0.2); COMPLETE YES; EOS % 2.8 %; HEMATOCRIT 38.3 % (37-47); IG% 0.2 %; LYMPH % 39.2 %; LYMPH ABS # 3.54 K/uL (1.2-3.4); MEAN CELL VOLUME 85.1 fL (80-100); MEAN CORPUSCULAR HEMOGLOBIN 28.2 pg (25-34); MEAN CORPUSCULAR HGB CONC 33.2 g/dl (32-36); MEAN PLATELET VOLUME 9.2 fL (7.4-10.4); MONO % 5.1 %; NEUT % 52.4 %; PLATELET COUNT 244 K/uL (130-400); WHITE BLOOD COUNT 9.02 K/uL (4.8-10.8)
[2016-12-03 23:11] LABS: ALT/SGPT 21 U/L (12-78); BLOOD UREA NITROGEN 15 mg/dl (7-18); BUN/CREATININE RATIO 18.4 (10-20); CALCIUM 8.9 mg/dl (8.5-10.1); CARBON DIOXIDE 25 mmol/L (21-32); CHLORIDE 109 mmol/L (98-107); CREATININE 0.83 mg/dl (0.60-1.20); GLUCOSE 93 mg/dl (70-99); POTASSIUM 3.6 mmol/L (3.5-5.1); SODIUM 142 mmol/L (136-145)
[2016-12-03 23:16] LABS: ALKALINE PHOSPHATASE 51 U/L (45-117); AST/SGOT 16 U/L (15-37)
[2016-12-03 23:28] LABS: PREG INTERNAL NEGATIVE QC NEG CLEAR BACKGROUND; PREG INTERNAL POSITIVE QC POS CONTROL LINE
[2016-12-04 01:50] VITALS: BP 112/78; PULSE 67; O2SAT 100
--- NOTE | 2016-12-04 03:43 | EMERGENCY ROOM VISIT NOTE ---
History First contact with patient: 21:25 Chief Complaint: SHORTNESS OF BREATH Stated Complaint: SOB,CHEST PRESSURE, PAIN BW SHOULDER BLADES Nursing Triage Summary: Patient diagnosed with bronchitis two days ago and was placed on doxy and 40 mg Prednisone for 5 days. Patient reports worsening more SOB and pain between shoulder blades and chest pressure. Patient also has been using a nebulizer without relief. History of Present Illness The patient is a 41 year old female who presents to the Emergency Room with complaints of cough, congestion, chest pain and dyspnea for the past week who was seen by urgent care and started on prednisone and doxycycline. Patient had no x-rays done. Patient states the symptoms have progressed and this is what prompted her to the ER. Patient states the pain is worse with coughing and better with rest. Patient denies abdominal pain, vomiting, diarrhea, leg pain or swelling. No prior heart disease. No history of blood clots. No family history of heart disease or blood clots. Patient does not smoke. No control. No recent travel. Review of Systems See HPI for pertinent positives & negatives. A total of 10 systems reviewed and were otherwise negative. Past Medical/Surgical History Medical Problems: (1) Depression (2) History of small bowel obstruction (3) Infectious mononucleosis (4) Lumbago (5) ovarian cyst (6) Reactive airway disease Surgical Problems: (1) H/O reduction mammoplasty (2) H/O umbilical hernia repair (3) History of colposcopy (4) S/P appendectomy (5) S/P cholecystectomy (6) S/p decompression of small bowel (7) S/P tubal ligation Family History Diabetes mellitus MGF PGF FH: CAD (coronary artery disease) MGF Hypertension MGF Social History Smoking Status: Never Smoker Alcohol Use: occasionally Marital Status: Housing Status: lives with significant other Occupation Status: employed Current/Historical Medications Scheduled Diphenhydramine Hcl (Diphenhydramine Hcl), 50 MG PO HS Physical Exam Vital Signs Date Time Temp Pulse Resp B/P (MAP) Pulse Ox O2 Delivery O2 Flow Rate FiO2 12/04/16 01:50 67 18 112/78 100 12/04/16 01:26 67 18 112/78 100 Room Air 12/03/16 23:03 75 16 115/71 100 Room Air 12/03/16 22:30 98 Room Air 12/03/16 22:30 98 Room Air 12/03/16 22:21 98 Room Air 12/03/16 22:08 84 12/03/16 20:34 Room Air 12/03/16 20:32 36.6 82 16 125/77 100 Room Air Pain Rating (0-10): 2.0 Physical Exam VITALS: Vitals are noted on the nurse's note and reviewed by myself. Vital signs stable. GENERAL: Pleasant female, in no acute distress, nondiaphoretic, well-developed well-nourished. SKIN: The skin was without rashes, erythema, edema, or bruising. There is no tenting of the skin. Capillary reflex less than 2 seconds. HEAD: Normocephalic atraumatic. EARS: External auditory canals clear, tympanic membranes pearly belcher without erythema or effusion bilaterally. EYES: Pupils equal round and reactive to light and accommodation. Conjunctivae without injection, sclerae without icterus. Extraocular movements intact. NOSE: Patent, turbinates without inflammation or discharge. No sinus tenderness. MOUTH: Mucous membranes moist. Pharynx without erythema or exudate. Uvula midline. Airway patent. Tongue does not deviate. NECK: Supple without nuchal rigidity. No lymphadenopathy. No thyromegaly. Cervical spine is nontender. No JVD. HEART: Regular rate and rhythm without murmurs gallops or rubs. Chest nontender to palpation LUNGS: Mild diffuse end expiratory wheezes, without rales or rhonchi. No dullness to percussion. No retractions or accessory muscle use. ABDOMEN: Positive bowel sounds x 4. Normal tympanic percussion. Soft, nontender, without masses or organomegaly. Infante sign negative. No guarding or rebound tenderness. MUSCULOSKELETAL: No muscle atrophy, erythema, or edema noted. NEURO: Patient was alert and oriented to person place and time. Normal sensation to light and sharp touch. No focal neurological deficits. Medical Decision & Procedures Laboratory Results 12/03/16 22:25 Red Blood Count 4.50, Mean Corpuscular Volume 85.1, Mean Corpuscular Hemoglobin 28.2, Mean Corpuscular Hemoglobin Concent 33.2, Mean Platelet Volume 9.2, Neutrophils (%) (Auto) 52.4, Lymphocytes (%) (Auto) 39.2, Monocytes (%) (Auto) 5.1, Eosinophils (%) (Auto) 2.8, Basophils (%) (Auto) 0.3, Neutrophils # (Auto) 4.72, Lymphocytes # (Auto) 3.54, Monocytes # (Auto) 0.46, Eosinophils # (Auto) 0.25, Basophils # (Auto) 0.03 12/03/16 22:25 Test 12/03/16 22:25 12/04/16 00:25 White Blood Count 9.02 K/uL (4.8-10.8) Red Blood Count 4.50 M/uL (4.2-5.4) Hemoglobin 12.7 g/dL (12.0-16.0) Hematocrit 38.3 % (37-47) Mean Corpuscular Volume 85.1 fL (80-100) Mean Corpuscular Hemoglobin 28.2 pg (25-34) Mean Corpuscular Hemoglobin Concent 33.2 g/dl (32-36) Platelet Count 244 K/uL (130-400) Mean Platelet Volume 9.2 fL (7.4-10.4) Neutrophils (%) (Auto) 52.4 % Lymphocytes (%) (Auto) 39.2 % Monocytes (%) (Auto) 5.1 % Eosinophils (%) (Auto) 2.8 % Basophils (%) (Auto) 0.3 % Neutrophils # (Auto) 4.72 K/uL (1.4-6.5) Lymphocytes # (Auto) 3.54 K/uL (1.2-3.4) Monocytes # (Auto) 0.46 K/uL (0.11-0.59) Eosinophils # (Auto) 0.25 K/uL (0-0.5) Basophils # (Auto) 0.03 K/uL (0-0.2) RDW Standard Deviation 42.3 fL (36.4-46.3) RDW Coefficient of Variation 13.6 % (11.5-14.5) Immature Granulocyte % (Auto) 0.2 % Immature Granulocyte # (Auto) 0.02 K/uL (0.00-0.02) D-Dimer < 190 ug/L FEU (0-500) Anion Gap 8.0 mmol/L (3-11) Est Creatinine Clear Calc Drug Dose 89.3 ml/min Estimated GFR () 100.8 Estimated GFR (Non- 87.0 BUN/Creatinine Ratio 18.4 (10-20) Calcium Level 8.9 mg/dl (8.5-10.1) Total Bilirubin 0.5 mg/dl (0.2-1) Direct Bilirubin 0.1 mg/dl (0-0.2) Aspartate Amino Transf (AST/SGOT) 16 U/L (15-37) Alanine Aminotransferase (ALT/SGPT) 21 U/L (12-78) Alkaline Phosphatase 51 U/L (45-117) Total Protein 7.4 gm/dl (6.4-8.2) Albumin 3.6 gm/dl (3.4-5.0) Lipase 161 U/L (73-393) Human Chorionic Gonadotropin, Qual NEG (NEG) Troponin I < 0.015 ng/ml (0-0.045) Medications Administered Medications (Trade) Dose Ordered Sig/Annie Route Start Time Stop Time Status Last Admin Dose Admin Ketorolac Tromethamine (Toradol Inj) 30 mg NOW STAT IV 12/03/16 21:29 12/03/16 21:34 DC 12/03/16 21:53 30 MG Albuterol/ Ipratropium (Duoneb) 3 ml NOW STAT INH 12/03/16 21:29 12/03/16 21:34 DC 12/03/16 21:51 3 ML Sodium Chloride 1,000 ml @ 999 mls/hr Q1H1M STAT IV 12/03/16 21:29 12/03/16 22:29 DC 12/03/16 21:53 999 MLS/HR Sodium Chloride 1,000 ml @ 125 mls/hr Q8H STAT IV 12/03/16 21:29 12/04/16 02:13 DC 12/03/16 23:38 125 MLS/HR Ketorolac Tromethamine (Toradol Inj) 30 mg NOW STAT IV 12/03/16 23:29 12/03/16 23:30 DC 12/03/16 23:38 30 MG ED Course Prior records/ancillary studies reviewed. Triage Nursing notes reviewed. Additional history obtained from family The patient's history was concerning for chest pain. Differential diagnosis: Etiologies such as cardiac ischemia, aortic dissection, pulmonary embolism, pneumonia, pneumothorax, musculoskeletal, infections, pericarditis, myocarditis , esophageal rupture, gastrointestinal, as well as others were entertained. Physical examination: As above. ER treatment provided: Toradol, IV fluids, nebulizer On reassessment the patient felt better. Diagnostic interpretation by me: The electrocardiogram was negative for pathologic change. Normal sinus, normal intervals, no acute ST-T wave changes. Impression normal sinus and myself The labs revealed negative d-dimer. Negative troponin 2 2 hours apart Imaging studies: Chest x-ray as above reviewed and negative per radiology and no acute consolidation, pneumothorax or free air per my interpretation Exam and history seem consistent with bronchitis with pleurisy. Patient felt much better after being medicated as above. No pneumonia. Normal EKG. Negative troponin 2 2 hours apart. Negative murmur. Patient was neurovascularly and neurologically intact. She is well-appearing. She is advised to continue her steroids as directed and to continue her nebulizers. She is advised to follow-up family care in a few days or here in the ER sooner for chest pain, difficulty breathing, worsening signs or symptoms or as needed. By the evaluation outlined above emergent etiologies such as cardiac ischemia, aortic dissection, pulmonary embolism, pneumonia, pneumothorax, pericarditis, myocarditis, gastrointestinal, as well as others were deemed relatively unlikely. The pt informed about the findings as listed above. All questions were answered and pleased with the treatment. Return instructions were outlined and the patient was discharged in stable condition. Referral: The patient was referred back to primary care physician for follow-up in 2 to 3 days for a recheck of the current condition. Case reviewed with my attending Medical Decision As above Medication Reconcilliation Current Medication List: was personally reviewed by me Blood Pressure Screening Patient's blood pressure: Normal blood pressure Impression Primary Impression: Chest pain Additional Impressions: Bronchitis Pleurisy Departure Information Dispostion Home / Self-Care Condition GOOD Forms HOME CARE DOCUMENTATION FORM, Work Instructions, Return To Work: 2 days IMPORTANT VISIT INFORMATION Patient Instructions Chest Pain - [facility], Pleurisy, Bronchitis Acute, My [facility] Additional Instructions Albuterol Inhaler: Take 2 puffs four times daily for five days, then as needed. Or nebulizer Continue prednisone as directed. Acetaminophen(Tylenol) may be used for fever or pain. Use 1000mg every six hours as needed. Avoid using more than 3000mg in a 24 hour period. (AND/OR) Ibuprofen(Motrin, Advil) may be used for fever or pain. Use 600mg every six hours as needed. Take with food. Avoid using more than 2400mg in a 24 hour period. Do not use 2400mg per day for more than three consecutive days without physician direction. Prolonged inappropriate use can lead to stomach upset or ulcers. Rest and drink plenty of fluids. Avoid smoke/smoking, fumes, dust, or any triggers in the past that may have affected your breathing. Continue current medications. Your cough might last for a week or 2 longer. Return to the ER for chest pain, difficulty breathing, fevers, vomiting, worsening of your condition, or as needed. Follow up with your primary physician this week for a recheck of your current condition. Work Instructions Return To Work: 2 days Problem Qualifiers Primary Impression: Chest pain Chest pain type: unspecified Qualified Codes: R07.9 - Chest pain, unspecified
== END 2016-12-04 01:51 | disposition home or self-care (01) ==
LOC: C.EDB 20:17
DX: R07.9 Chest pain, unspecified (principal); J40 Bronchitis, not specified as acute or chronic; R09.1 Pleurisy; F32.9 Major depressive disorder, single episode, unspecified; Z83.3 Family history of diabetes mellitus; Z82.49 Family history of ischemic heart disease and other diseases of the circulatory system

== ENCOUNTER → 2017-03-03 | Day surgery (SDC) | payer BC ==
[2017-02-25 09:44] VITALS: BMI 33.0
--- NOTE | 2017-02-25 09:57 | PAT Medication Instructions ---
Service Date Feb 25, 2017. Current Home Medication List Diphenhydramine Hcl (Diphenhydramine Hcl), 50 MG PO HS [Propranolol], 1 TAB PO PRN Medication Instructions For Your Scheduled Surgery - Take the following medications the morning of surgery with a sip of water: [Propranolol], 1 TAB PO PRN - Take the following medications as scheduled the night before surgery: Diphenhydramine Hcl (Diphenhydramine Hcl), 50 MG PO HS [Propranolol], 1 TAB PO PRN If you have any questions please call us at [phone] or [phone] or [phone]
[2017-02-25 10:56] LABS: CALCIUM 9.3 mg/dl (8.5-10.1); CREATININE 0.83 mg/dl (0.60-1.20); POTASSIUM 4.1 mmol/L (3.5-5.1)
[2017-02-25 10:59] LABS: PTT PATIENT 27.3 SECONDS (21.0-31.0)
[2017-02-26 17:48] LABS: BASO % 0.4 %; BASO ABS # 0.04 K/uL (0-0.2); EOS % 1.7 %; EOS ABS # 0.18 K/uL (0-0.5); HEMATOCRIT 40.3 % (37-47); HEMOGLOBIN 13.3 g/dL (12.0-16.0); IG# 0.02 K/uL (0.00-0.02); LYMPH % 23.9 %; LYMPH ABS # 2.46 K/uL (1.2-3.4); MEAN CELL VOLUME 85.2 fL (80-100); MEAN CORPUSCULAR HEMOGLOBIN 28.1 pg (25-34); MEAN PLATELET VOLUME 9.6 fL (7.4-10.4); MONO % 6.6 %; MONO ABS # 0.68 K/uL (0.11-0.59); NEUT % 67.2 %; NEUT ABS # 6.92 K/uL (1.4-6.5); PLATELET COUNT 291 K/uL (130-400); RED CELL DISTRIBUTION WIDTH CV 13.5 % (11.5-14.5); RED CELL DISTRIBUTION WIDTH SD 41.7 fL (36.4-46.3)
[~2017-03-03] VITALS: Ht 157.5 cm; Wt 83.8 kg
[~2017-03-03] MED LIST changes: +ACETAMINOPHEN 1000 MG/100 ML IV IV ONE; +ACETAMINOPHEN 1000 MG/100 ML IV IV SCH; +ACETAMINOPHEN 325 MG TAB PO PRN; +ATROPINE SULFATE 0.1 MG/ML 5ML SYR IV PRN; +BUPIVACAINE 0.25% 30 ML VIAL ONE; +CEPH500C PO; +CLINDAMYCIN 600 MG/54 ML D5W IV SCH; +DEXAMETHASONE SOD INJ 4 MG/ML VIAL ONE; +DIPH25CA65 PO; +DIPH25TA33 PO; +DexMEDEtomidine HCL IV 100 MCG/ML VIAL IV ONE; +EpHEDrine SULFATE INJ 50 MG/ML AMP IV PRN; +FENTANYL CITRATE INJ 50 MCG/1 ML 2 ML VIAL IV PRN; +FENTANYL CITRATE INJ 50 MCG/1 ML 2 ML VIAL ONE; +FLUC100T4 PO; +HYDROmorphone INJ 1 MG/ML SYR IV PRN; +HYDROmorphone INJ 2 MG/ML SYR/VIAL ONE; -IBUP1TAB55 PO; +LACTATED RINGER'S 1000ML IV SCH; +LIDOCAINE HCL 2% 2 ML VIAL (20MG/ML) ONE; +LIDOCAINE/EPINEPHRINE 1% 20 ML VIAL ONE; +MDRDP21 PO; +METOCLOPRAMIDE HCL INJ 5 MG/ML 2 ML VIAL IV PRN; +MIDAZOLAM HCL 1 MG/ML 2ML VIAL ONE; +MOME0.1O TOP; +ONDANSETRON INJ 2 MG/ML 2 ML VIAL IV PRN; +ONDANSETRON INJ 2 MG/ML 2 ML VIAL ONE; +OXYCODONE/ACETAMINOPHEN 5-325 TAB PO PRN; +PHENYLEPHRINE 100MCG/ML 5ML SYR ONE; +PROMETHAZINE HCL INJ 12.5 MG in SODIUM CHLORIDE 0.9% 50ML 50 ML IV PRN; +PROPOFOL IV EMULSION 10 MG/ML 20 ML VIAL IV ONE; +PROPRANOLOL PO; +SODIUM CHLORIDE 0.9% 1000ML 1,000 ML IV SCH; +TRIAMCINOLONE ACET 40 MG/ML VIAL ONE
[2017-03-03 05:55] VITALS: BP 142/94; PULSE 105; TEMP 36.7; O2SAT 98; Ht 157.5 cm; Wt 83.8 kg
--- NOTE | 2017-03-03 06:56 | History & Physical Bridge Note ---
H&P Re-Evaluation Bridge Note: I have examined the patient, reviewed the History & Physical and in the interval since the performance of the History & Physical I have noted the following changes of clinical significance: No changes noted
--- NOTE | 2017-03-03 09:29 | [facility] Post Operative Brief Note ---
Immediate Operative Summary Operative Date Mar 03, 2017. Pre-Operative Diagnosis Keloid scars Post-Operative Diagnosis Same as preop Procedure(s) Performed Excision of Keloid Scars Breast and Abdomen Surgeon Dr. Bradley Business Controller Surgeon(s) Carlos Panchal PA-C Estimated Blood Loss 5 ml Findings thick keloid scars Specimens A: umbilical keloid B: left breast keloid - 15cm and 3cm C: right breast keloid - 18cm and 2cm Anesthesia general Complication(s) None Disposition Recovery Room / PACU
--- NOTE | 2017-03-03 09:36 | Discharge Instructions ---
Discharge Instructions Date of Service Mar 03, 2017. Admission Reason for Admission: Keloid Scar Discharge Discharge Diagnosis / Problem: keloid scar Discharge Goals Goal(s): Decrease discomfort Activity Recommendations Activity Limitations: per Instructions/Follow-up section ACTIVITY RECOMMENDATIONS: __Normal activities _x_No bending, lifting or straining __No driving _x_Driving allowed when you are off pain medications _x_Walking permitted __You should have help at home for ___ days DRESSINGS: __No dressings required _x_Keep dressings dry/in place until first office visit. OK to remove dressings for radiation. May replace gauze if desired under bra, or wear a cotton T/jose under bra __Remove dressings ___ and leave dressings off __Apply ice ___ days __Remove dressings and reapply garment __Apply antibiotic ointment (Bacitracin, Neosporin, etc) to wounds 3-4 times/ day for 10 days BATHING: _x_Keep dressings dry _x_Sponge bathing permitted __Showering permitted _x_No swimming, hot tubs or soaking in a tub MEDICATIONS: Resume previous medications unless instructed otherwise by your surgeon. _x_Do not use aspirin, Motrin, Advil or Ibuprofen as these may promote bleeding. Please use Tylenol. _x_Prescription(s) provided: pain medication provided at your last office visit OTHER INSTRUCTIONS: __Record drain output 2-3 times per day SPECIAL CARE INSTRUCTIONS: * It is normal to have a mild fever after surgery. If your temperature is higher than 101.5 degrees F, please call the office at [phone]. * Constipation is a typical side effect of pain medication. An over-the- counter stool softener will help relieve this. * Leaking around surgical drains may occur and should not cause concern. Sometimes these drains become clogged. If this happens, remove the bulb and milk the clot out of the tube, then replace the bulb. * Drainage from wounds after liposuction is normal and should be expected. Garments will become soiled. You should protect furniture and bedding. This drainage should mostly subside within 2-3 days. Leave garments in place unless instructed to remove them. * If you have unusual drainage from a wound or are concerned you have an infection or have any questions or concerns, please call the office at [phone]. FOLLOW UP VISIT: If not already scheduled, please call the office, , when you return home after surgery to schedule an appointment to be seen in __2_ days. . Current Hospital Diet Patient's current hospital diet: Discharge Diet Recommended Diet: Regular Diet Procedures Procedures Performed: Excision of Keloid Scars Breast and Abdomen Pending Studies Studies pending at discharge: yes List of pending studies: pathology Medical Emergencies . Who to Call and When: Medical Emergencies: If at any time you feel your situation is an emergency, please call 911 immediately. . Non-Emergent Contact Non-Emergency issues call your: Primary Care Provider, Surgeon . "Provider Documentation" section prepared by rBea Panchal. . VTE Core Measure Inpt VTE Proph given/why not?: SCD's [place] Drug Monitoring Program Search Results: no issues identified
--- NOTE | 2017-03-03 10:13 | Anesthesiology Progress Note ---
Anesthesia Post Op Note Date & Time Mar 03, 2017 at 10:13 Vital Signs Pain Intensity: 5.0 Vital Signs Past 12 Hours Date Time Temp Pulse Resp B/P (MAP) Pulse Ox O2 Delivery O2 Flow Rate FiO2 03/03/17 10:05 118 16 03/03/17 10:05 118 16 96 03/03/17 10:01 130/69 03/03/17 10:00 122 16 100 03/03/17 10:00 121 16 03/03/17 09:56 126/66 03/03/17 09:55 91 16 03/03/17 09:55 90 16 98 03/03/17 09:51 112/65 03/03/17 09:50 84 18 03/03/17 09:50 84 18 95 03/03/17 09:46 130/74 03/03/17 09:45 121 14 03/03/17 09:45 121 14 99 03/03/17 09:41 91/51 03/03/17 09:40 78 13 03/03/17 09:40 78 13 99 03/03/17 09:35 76 13 100/58 99 03/03/17 09:35 36.1 78 15 100/58 99 Oxymask 10 03/03/17 09:35 77 13 03/03/17 05:55 36.7 105 20 142/94 (110) 98 Room Air Notes Mental Status: alert / awake / arousable, participated in evaluation Pt Amnestic to Procedure: Yes Nausea / Vomiting: adequately controlled Pain: adequately controlled Airway Patency, RR, SpO2: stable & adequate BP & HR: stable & adequate Hydration State: stable & adequate Anesthetic Complications: no major complications apparent
[2017-03-03 10:50] VITALS: BP 111/61; PULSE 94; TEMP 36.3; O2SAT 96
[2017-03-03 11:20] VITALS: BP 117/61; PULSE 91; TEMP 36.4; O2SAT 95
--- NOTE | 2017-03-03 17:48 | OPERATIVE REPORT ---
DATE OF OPERATION: 03/03/2017 PREOPERATIVE DIAGNOSIS: Keloid scars of bilateral breasts and abdomen. POSTOPERATIVE DIAGNOSIS: Same. PROCEDURE: Excision of keloid scars, breast and abdomen with Kenalog injection. SURGEON: Dr. Celia Bradley. ADJUSTER PIANO ACTION: Brea Panchal PA-C. ANESTHESIA: General. COMPLICATIONS: None. INDICATION FOR THE PROCEDURE: The patient is a 41-year-old female who presented to my office for evaluation of multiple keloid scars following a breast reduction performed at an outside institution in 2011. She had already undergone revision of the medial breast keloid scars followed by radiation therapy a few years back and this did prove to be beneficial. Regarding the scars, she was experiencing significant pain at the sites on the lateral breasts and desired further treatment. Given the large size of these keloid scars, we discussed excision in the operating room with Kenalog injection followed by additional radiation therapy to the lateral breast and umbilicus. BRIEF DESCRIPTION OF THE PROCEDURE: The risks, benefits, and alternatives of the procedure were explained to the patient, who agreed and signed consent. She was identified and marked in the preoperative holding area. She was brought to the operating room, where she was positioned supine and placed under anesthesia without incident. Surgical site was prepped and draped sterilely. I began with the left side. The left lateral breast had a 15 cm in length keloid scar that was approximately 2 cm in width and inferiorly, there was an associated 3-cm slightly pedunculated keloid associated with the prior drain placement site. Right breast had an 18-cm keloid at the lateral breast with a 2-cm keloid at the drain removal site. There were also large keloid scars around the nipples, which she did not desire to have treated at this time. Additionally, the umbilicus had an approximately 4 cm x 2 cm raised slightly pedunculated keloid scar as well. I began with the left side. Scars were marked for excision and 1% lidocaine with epinephrine was used to anesthetize the planned incisions. A 15 blade scalpel was used to make the incision directly adjacent to the keloid scar. The incision was then deepened using electrocautery. Scar was then removed at the level of the underlying subcutaneous fat with electrocautery. Due to concern about wound tension, I did undermine the superior border of the excision site by about 3 cm to facilitate closure. 3-0 PDS interrupted deep dermal sutures were used to reapproximate the incision followed by 2-0 PDO Quill superficial dermal suture and 3-0 Monocryl running subcuticular suture as well as Dermabond Prineo. The smaller excision site on the left lateral breast was excised in similar fashion and was closed using 3-0 PDS and 3-0 Monocryl suture. Closure lengths of these 2 scars were 15 cm and 2 cm. Prior to wound closure, Kenalog 40 diluted 1:4 with 1% lidocaine with epinephrine was used to inject the wound periphery as well as the base of the wound. 0.25% Marcaine plain was injected to provide some additional local anesthesia. Attention was then turned to the right breast, where a similar procedure was undertaken. The closure on the right side was undertaken in similar fashion and measured 17 cm and 2 cm. These were also injected with Kenalog and Marcaine. Lastly, attention was turned to the umbilicus. A similar procedure was performed with total wound closure length of 5.2 cm. Closure was performed using 3-0 PDS interrupted dermal sutures and 3-0 Monocryl running subcuticular suture. Dermabond Prineo was applied to all excision sites. Dry dressings and a surgical bra were placed. A total complex closure length was 33 cm for the larger left and right breast keloids for which significant undermining was performed and a total intermediate closure length was 9.2 cm. Brea Panchal was present and scrubbed throughout the entire procedure and was instrumental in assisting in simultaneous wound closure. I attest to the content of the Intraoperative Record and any orders documented therein. Any exception s are noted below.
== END | disposition home or self-care (01) ==
LOC: C.ACU 05:36
PROVIDERS: ATTEND Plastic Surgery
DX: L91.0 Hypertrophic scar (principal); E66.9 Obesity, unspecified; Z88.0 Allergy status to penicillin; Z88.2 Allergy status to sulfonamides; K21.9 Gastro-esophageal reflux disease without esophagitis; J45.909 Unspecified asthma, uncomplicated; Z90.89 Acquired absence of other organs; Z90.49 Acquired absence of other specified parts of digestive tract; Z98.51 Tubal ligation status; Z83.49 Family history of other endocrine, nutritional and metabolic diseases; Z80.0 Family history of malignant neoplasm of digestive organs

== ENCOUNTER 2017-03-23 12:22 | Emergency (ER) | payer BC ==
[~2017-03-23] VITALS: Ht 157.5 cm; Wt 84.2 kg
[~2017-03-23 12:22] MED LIST changes: -ACETAMINOPHEN 1000 MG/100 ML IV IV ONE; -ACETAMINOPHEN 1000 MG/100 ML IV IV SCH; -ACETAMINOPHEN 325 MG TAB PO PRN; -ATROPINE SULFATE 0.1 MG/ML 5ML SYR IV PRN; -BUPIVACAINE 0.25% 30 ML VIAL ONE; -CEPH500C PO; -CLINDAMYCIN 600 MG/54 ML D5W IV SCH; -DEXAMETHASONE SOD INJ 4 MG/ML VIAL ONE; -DIPH25CA65 PO; -DexMEDEtomidine HCL IV 100 MCG/ML VIAL IV ONE; -EpHEDrine SULFATE INJ 50 MG/ML AMP IV PRN; -FENTANYL CITRATE INJ 50 MCG/1 ML 2 ML VIAL IV PRN; -FENTANYL CITRATE INJ 50 MCG/1 ML 2 ML VIAL ONE; -FLUC100T4 PO; -HYDROmorphone INJ 1 MG/ML SYR IV PRN; -HYDROmorphone INJ 2 MG/ML SYR/VIAL ONE; -LACTATED RINGER'S 1000ML IV SCH; -LIDOCAINE HCL 2% 2 ML VIAL (20MG/ML) ONE; -LIDOCAINE/EPINEPHRINE 1% 20 ML VIAL ONE; -MDRDP21 PO; -METOCLOPRAMIDE HCL INJ 5 MG/ML 2 ML VIAL IV PRN; -MIDAZOLAM HCL 1 MG/ML 2ML VIAL ONE; -MOME0.1O TOP; -ONDANSETRON INJ 2 MG/ML 2 ML VIAL IV PRN; -ONDANSETRON INJ 2 MG/ML 2 ML VIAL ONE; -OXYCODONE/ACETAMINOPHEN 5-325 TAB PO PRN; -PHENYLEPHRINE 100MCG/ML 5ML SYR ONE; -PROMETHAZINE HCL INJ 12.5 MG in SODIUM CHLORIDE 0.9% 50ML 50 ML IV PRN; -PROPOFOL IV EMULSION 10 MG/ML 20 ML VIAL IV ONE; -SODIUM CHLORIDE 0.9% 1000ML 1,000 ML IV SCH; -TRIAMCINOLONE ACET 40 MG/ML VIAL ONE
[2017-03-23 12:32] VITALS: TEMP 36.8; Ht 157.5 cm; Wt 84.2 kg
[2017-03-23] MEDS ORDERED: FLUC100T4 PO (12:44)
[2017-03-23] MEDS ORDERED: MDRDP21 PO (12:44)
[2017-03-23] MEDS ORDERED: DIPH25CA65 PO (12:45)
[2017-03-23] MEDS ORDERED: DiphenhydrAMINE HCL 50 MG/ML VIAL IV STA (13:12)
[2017-03-23] MEDS ORDERED: DEXAMETHASONE INJ 10 MG in SYRINGE 0 ML IV STA (13:12)
[2017-03-23] MEDS ORDERED: FAMOTIDINE 20MG/5ML IV PUSH IV STA (13:12)
--- NOTE | 2017-03-23 13:14 | EMERGENCY ROOM VISIT NOTE ---
History Report prepared by Mayra: Jose Leonardo Under the Supervision of: Dr. Ale Stout D.O. First contact with patient: 13:00 Chief Complaint: ALLERGIC REACTION Stated Complaint: POST OP,ALLERGIC REACTION History of Present Illness The patient is a 41 year old female who presents to the Emergency Room with complaints of worsening allergic reaction starting about a week ago. The patient had surgery done on her breasts, and it has been getting worse and itchy. The patient states that has been taking Benadryl every night for the itchiness. She states that a few days ago she got her sutures out, and during which it was very red. She was put on Diflucan three days ago, and two days ago it was getting worse, and she started to take 100mg of prednisone. She notes that currently it is red, hot, and itchy. She states that the rash is also lower in her belly button, and she denies any rash on her groin or rectum. The patient reports that she has been taking showers, and this has not helped. She denies any difficulty swallowing, trouble breathing, leg swelling, or leg pain. Source of History: patient Onset: a week ago Position: other (chest ) Quality: other (allergic reaction) Timing: worsening Associated Symptoms: No SOB Note: Associated symptoms: Redness, warmth, itchiness Review of Systems See HPI for pertinent positives & negatives. A total of 10 systems reviewed and were otherwise negative. Past Medical & Surgical Medical Problems: (1) Depression (2) History of small bowel obstruction (3) Infectious mononucleosis (4) Lumbago (5) ovarian cyst (6) Reactive airway disease Surgical Problems: (1) H/O reduction mammoplasty (2) H/O umbilical hernia repair (3) History of colposcopy (4) S/P appendectomy (5) S/P cholecystectomy (6) S/p decompression of small bowel (7) S/P tubal ligation Family History Diabetes mellitus MGF PGF FH: CAD (coronary artery disease) MGF Hypertension MGF Social History Smoking Status: Never Smoker Alcohol Use: occasionally Marital Status: Housing Status: lives with significant other Occupation Status: employed Current/Historical Medications Scheduled Diphenhydramine Hcl (Benadryl Allergy), 50 MG PO HS Fluconazole (Diflucan), 100 MG PO DAILY Methylprednisolone (Methylprednisolone Dose P), 1 TAB PO DIRECTED Allergies Coded Allergies: Morphine (Verified Allergy, Severe, SHORTNESS OF BREATH, 03/03/17) Tolerates hydromorphone Sulfa Antibiotics (Verified Allergy, Severe, THROAT SWELLS, 03/03/17) Penicillins (Verified Allergy, Intermediate, rash, 03/03/17) Prochlorperazine (Verified Adverse Reaction, Intermediate, anxiety, ) Fentanyl (Verified Adverse Reaction, Unknown, trouble breathing, 03/03/17) Physical Exam Vital Signs Date Time Temp Pulse Resp B/P (MAP) Pulse Ox O2 Delivery O2 Flow Rate FiO2 03/23/17 15:50 82 20 117/77 99 03/23/17 15:09 73 16 124/81 97 Room Air 03/23/17 14:12 116 16 123/104 98 Room Air 03/23/17 12:32 36.8 94 20 142/92 96 Room Air Physical Exam HEENT: Head - normocephalic and atraumatic Pupils are equal, round, and reactive to light. Extraocular eye muscles are intact, and sclera are anicteric. Nose - moist nasal mucosa without discharge. Mouth - moist buccal mucosa. Oropharynx is nonerythematous and there is no tonsillar exudate or edema noted. Neck: Supple; no JVD, nuchal rigidity, cervical lymphadenopathy. Heart: Regular rate and rhythm. There is a normal S1 and S2 with no murmurs, clicks, or gallops appreciated. Lungs: Clear to auscultation bilaterally with no wheezes, rales, or rhonchi. Abdomen: Soft, completely nontender, nondistended, with good bowel sounds. There are no palpable pulsatile masses or hepatosplenomegaly. There is no guarding, rigidity, or rebound noted. Extremities: No evidence of cyanosis, clubbing, or edema. There are easily palpable peripheral pulses. Skin: Erythema and macular lesions surrounding the surgical incisions under her breasts. The rash extends posteriorly on to her back and down the side of her chest. Small area of rash around the umbilicus. Medical Decision & Procedures Medications Administered Medications (Trade) Dose Ordered Sig/Annie Route Start Time Stop Time Status Last Admin Dose Admin Dexamethasone Sodium Phosphate 10 mg/Syringe 2.5 ml @ 1 mls/min NOW STAT IV 03/23/17 13:12 03/23/17 13:15 DC 03/23/17 14:07 1 MLS/MIN Diphenhydramine HCl (Benadryl Inj) 50 mg NOW STAT IV 03/23/17 13:12 03/23/17 13:15 DC 03/23/17 14:08 50 MG Famotidine (Pepcid 20mg Iv Push) 20 mg ONE STAT IV 03/23/17 13:12 03/23/17 13:15 DC 03/23/17 14:07 20 MG Ketorolac Tromethamine (Toradol Inj) 30 mg NOW STAT IV 03/23/17 14:56 03/23/17 14:57 DC 03/23/17 15:05 30 MG Procedure Ordered: Famotidine IV, Benadryl IV, Dexamethasone Sodium Phosphate IV, Toradol IV ED Course 1300: Past medical records reviewed. The patient was evaluated in room A4. A complete history and physical exam was performed. 1312: Famotidine 20mg IV, Benadryl 50mg IV, Dexamethasone Sodium Phosphate 1mg/ Syringe 2.5ml @ 1mls/min 1439: I reevaluated the patient, and she is feeling much better, though she is still having some burning. I reexamined her, and she had significant improvement after the medications. 1456: Toradol 30mg IV 1541: I discussed the patient's case with Dr. Bradley - Plastic Surgery, and she agrees with the treatment plan, and she will see the patient as a follow up in the office 1545: Upon reevaluation, doing well. I discussed findings and results with her. She verbalized agreement of the treatment plan. She was discharged home. Medical Decision The patient is a 41 year old female who presents to the ED with an allergic reaction. Differential diagnosis includes yeast infection, infected surgical wounds, acute allergic skin reaction, contact dermatitis. Patient has a rash surrounding the surgical incisions under her breasts. Initially, it was thought to be used. She has been taking Diflucan with no improvement. She was also prescribed a Medrol Dosepak but the redness and burning pain persists. The rash does not appear to be infectious. It is easily blanchable. I considered the possibility of yeast but it seems to extend out from underneath of her breast tissue. I believe the rash looks more allergic. She has significant relief of her symptoms with the above medications. I've encouraged her to continue taking the Diflucan and prednisone but also to take Benadryl and Zantac regularly. I discussed the case with Dr. Bradley and she will see the patient and follow-up. Medication Reconcilliation Current Medication List: was personally reviewed by me Blood Pressure Screening Patient's blood pressure: Elevated blood pressure Blood pressure disposition: Elevated BP felt to be situational Consults Time Called: 1528 Consulting Physician: Dr. Bradley - Plastic Surgery Returned Call: [phone] I discussed the patient's case with Dr. Bradley - Plastic Surgery, and she agrees with the treatment plan, and she will see the patient as a follow up in the office Impression Primary Impression: Acute allergic reaction Scribe Attestation The scribe's documentation has been prepared under my direction and personally reviewed by me in its entirety. I confirm that the note above accurately reflects all work, treatment, procedures, and medical decision making performed by me. Departure Information Dispostion Home / Self-Care Referrals Astrid Partida MD (PCP) Forms HOME CARE DOCUMENTATION FORM, IMPORTANT VISIT INFORMATION Patient Instructions ED Allergic Reaction Local Other, My [facility] Additional Instructions Rest. Take Diflucan as directed. Continue steroids as directed. Use benadryl - 50mg every 6 hours along with zantac - 75mg every 6 hours. Follow up on friday if not improving Problem Qualifiers Primary Impression: Acute allergic reaction Encounter type: initial encounter Qualified Codes: T78.40XA - Allergy, unspecified, initial encounter
[2017-03-23] MEDS ORDERED: DEXAMETHASONE **PF** INJ 10 MG/ML VIAL ONE (13:18)
[2017-03-23] MEDS ORDERED: KETOROLAC TROMETHAMINE 30 MG/ML VIAL IV STA (14:56)
[2017-03-23 15:50] VITALS: BP 117/77; PULSE 82; O2SAT 99
== END 2017-03-23 15:51 | disposition home or self-care (01) ==
LOC: C.EDB 12:24 → C.EDA 15:51
DX: T78.40XA Allergy, unspecified, initial encounter (principal); X58.XXXA Exposure to other specified factors, initial encounter; Z98.890 Other specified postprocedural states; F32.9 Major depressive disorder, single episode, unspecified; N83.209 Unspecified ovarian cyst, unspecified side; Z98.51 Tubal ligation status; Z83.3 Family history of diabetes mellitus; Z82.49 Family history of ischemic heart disease and other diseases of the circulatory system

== ENCOUNTER 2017-03-25 12:20 | Emergency (ER) | payer BC ==
[~2017-03-25] VITALS: Ht 157.5 cm; Wt 85.5 kg
[~2017-03-25 12:20] MED LIST changes: +DIPH25CA65 PO; +FLUC100T4 PO; +MDRDP21 PO
[2017-03-25 12:28] VITALS: Ht 157.5 cm; Wt 85.5 kg
--- NOTE | 2017-03-25 13:32 | EMERGENCY ROOM VISIT NOTE ---
History Report prepared by Mayra: Yoan Slade Under the Supervision of: Dr. Zachary Aguiar M.D. First contact with patient: 13:20 Chief Complaint: ALLERGIC REACTION Stated Complaint: POST OP ALLERGIC REACTION Nursing Triage Summary: Patient with hives, errythemia to torso s/p surgery 3 weeks ago. Patient denies any SOB or oral pharyngeal swelling. patient treated by Dr. henry two days ago , ,placed on steroids, initially improving now symptoms are returning. History of Present Illness The patient is a 41 year old white female with a past medical history of a small bowel obstruction, abdominal wall hernia, and keloid removal procedure who presents to the ED with a cc of a waxing and waning allergic reaction around her breasts beginning over a week ago. Positive hives, erythema, itching. Negative shortness of breath. She states that she had a keloid removal procedure done beneath both her breasts and arms by plastics (Dr. Bradley) 3 weeks ago. She adds that she had some radiation done as well. The patient notes that the operation went well, but she has developed severe itching over a week ago, and was told to take [id number] medications. She says that 5 days ago , she went to her post-op appointment to get the sutures removed, but the reaction was noted by the doctor, and she was started on Diflucan, and was then started on steroids a few days ago because the reaction was not getting better. She was seen here 2 nights ago, and was given Decadron and Toradol, which helped a bit, but her itching and erythema have now worsened again last night. The patient has been taking Benadryl at night. Source of History: patient, spouse/significant other Onset: Over a week ago Position: other (underneath breasts and arms) Symptom Intensity: had keloid removal procedure 3 weeks ago Quality: other (itching, erythema, hives) Timing: waxes/wanes Modifying Factors (Relieving): other (Decadron, Toradol) Associated Symptoms: No SOB Note: No other associated symptoms noted. Review of Systems See HPI for pertinent positives and negatives. A total of ten systems were reviewed and were otherwise negative. Past Medical & Surgical Medical Problems: (1) Depression (2) History of small bowel obstruction (3) Infectious mononucleosis (4) Lumbago (5) ovarian cyst (6) Reactive airway disease Surgical Problems: (1) H/O reduction mammoplasty (2) H/O umbilical hernia repair (3) History of colposcopy (4) S/P appendectomy (5) S/P cholecystectomy (6) S/p decompression of small bowel (7) S/P tubal ligation Family History Diabetes mellitus MGF PGF FH: CAD (coronary artery disease) MGF Hypertension MGF Social History Smoking Status: Never Smoker Alcohol Use: occasionally Marital Status: Housing Status: lives with significant other Occupation Status: employed Current/Historical Medications Scheduled Cephalexin Monohydrate (Keflex), 1 CAP PO QID Diphenhydramine Hcl (Benadryl Allergy), 50 MG PO HS Fluconazole (Diflucan), 100 MG PO DAILY Methylprednisolone (Methylprednisolone Dose P), 1 TAB PO DIRECTED Mometasone Furoate (Elocon), 1 APPLN TOP QD Allergies Coded Allergies: Morphine (Verified Allergy, Severe, SHORTNESS OF BREATH, 03/25/17) Tolerates hydromorphone Sulfa Antibiotics (Verified Allergy, Severe, THROAT SWELLS, 03/25/17) Penicillins (Verified Allergy, Intermediate, rash, 03/25/17) Prochlorperazine (Verified Adverse Reaction, Intermediate, anxiety, ) Fentanyl (Verified Adverse Reaction, Unknown, trouble breathing, 03/25/17) Physical Exam Vital Signs Date Time Temp Pulse Resp B/P (MAP) Pulse Ox O2 Delivery O2 Flow Rate FiO2 03/25/17 16:34 36.5 70 18 107/78 97 Room Air 03/25/17 15:09 80 18 116/84 99 03/25/17 14:20 76 18 113/80 98 Room Air 03/25/17 12:28 Room Air 03/25/17 12:28 36.4 80 18 148/94 98 Room Air Physical Exam GENERAL: Awake, alert, well-appearing, NAD HENT: Normocephalic, atraumatic. EYES: Normal conjunctiva. Sclera non-icteric. NECK: Supple. No nuchal rigidity. FROM. RESPIRATORY: CTAB, no rhonchi, wheezing, crackles CARDIAC: RRR, no MRG ABDOMEN: Soft, NTND, BS+ MSK: No chest wall TTP, no LE edema NEURO: GCS 15, CN 2-12 intact, moves all 4s on command SKIN: Incisional scar over right lateral breast as well as some keloid around the nipple area. Some blanching redness inferior to the inframammary crease bilaterally. No petechiae, no fluctuance. Incisional sites are well appearing without discharge. Medical Decision & Procedures Medications Administered Medications (Trade) Dose Ordered Sig/Annie Route Start Time Stop Time Status Last Admin Dose Admin Cephalexin Monohydrate (Keflex Cap) 500 mg NOW ONCE PO 03/25/17 14:00 03/25/17 14:01 DC 03/25/17 14:15 500 MG Ibuprofen (Advil Tab) 400 mg NOW STAT PO 03/25/17 13:55 03/25/17 13:57 DC 03/25/17 14:14 400 MG Acetaminophen (Tylenol Tab) 1,000 mg NOW STAT PO 03/25/17 13:55 03/25/17 13:57 DC 03/25/17 14:15 1,000 MG Diphenhydramine HCl (Benadryl Inj) 25 mg NOW STAT IM 03/25/17 14:11 03/25/17 14:12 DC 03/25/17 14:15 25 MG Oxycodone HCl (Roxicodone Immediate Rel Tab) 5 mg NOW STAT PO 03/25/17 15:07 03/25/17 15:09 DC 03/25/17 15:22 5 MG Tramadol HCl (Ultram Tab) 50 mg NOW STAT PO 03/25/17 15:07 03/25/17 15:09 DC 03/25/17 15:21 50 MG ED Course 1335: The patient was evaluated in room B7. A complete history and physical exam was performed. 1503: I reevaluated the patient and she is not feeling much better. 1615: I reevaluated the patient and she is resting comfortably. Discussed results and discharge instructions: she verbalized understanding and agreement. The patient is ready for discharge. Medical Decision The patient is a 41 year old white female with a past medical history of a small bowel obstruction, abdominal wall hernia who presents to the ED with a cc of a waxing and waning allergic reaction around her breasts beginning over a week ago. Positive hives, erythema, itching. Negative shortness of breath. Differential diagnosis: Etiologies such as cellulitis, abscess, MRSA infection, DVT, necrotizing fasciitis, dermatitis, drug eruption, radiation dermatitis as well as others were entertained. Patient was seen and evaluated the bedside. Patient had complained of some itchiness that been ongoing near and around her breasts. Patient did have a prior breast reduction surgery but had developed some keloids. Patient had had these removed had received some radiation to prevent further development of scarring. Patient has noticed some redness irritation and itchiness. Patient mostly complains of a burning itchiness. Patient has been treated with steroids and Benadryl without much effect. Given that the patient has had some some prior radiation to the area this may be more related to radiation dermatitis. Patient was prescribed some steroid cream to help with this. Given that the patient may have an underlying cellulitis patient was also given Keflex. Patient's surgical sites appear very well and I do not believe that she has any fluid that would need to be drained or concern for abscess at this time. Blood work was not obtained given the confounder's of that she is already on steroids. She likely would have an elevated white blood cell count. Patient was deemed suitable for outpatient follow-up and treatment. Patient was told to follow-up with her PCP and discuss the need for referral to a broadcast traffic coordinator. Patient was agreeable to this plan of care. Patient was given strict follow-up, discharge, and return precautions. All questions were answered. Patient was deemed suitable for outpatient follow-up at this time. Patient agreed with the plan of care and was safely discharged home. Medication Reconcilliation Current Medication List: was personally reviewed by me Blood Pressure Screening Patient's blood pressure: Elevated blood pressure Blood pressure disposition: Elevated BP felt to be situational Impression Primary Impression: Allergic reaction Additional Impressions: Radiation dermatitis Cellulitis Scribe Attestation The scribe's documentation has been prepared under my direction and personally reviewed by me in its entirety. I confirm that the note above accurately reflects all work, treatment, procedures, and medical decision making performed by me. Departure Information Dispostion Home / Self-Care Prescriptions Cephalexin Monohydrate (Keflex) 500 Mg Cap 1 CAP PO QID for 7 Days, #28 CAP Prov: Zachary Aguiar M.D. 03/25/17 Mometasone Furoate (ELOCON) 0.1 % Oin 1 APPLN TOP QD for Affected Skin Folds for 14 Days, #15 GM Prov: Zachary Aguiar M.D. 03/25/17 Referrals Celia Bradley MD (PCP) Patient Instructions Cellulitis - [facility], ED Dermatitis Non Specific Rash, My [facility] Additional Instructions Please return to the emergency department if you have worsening or recurrent symptoms not amenable to at-home treatment. Please call for a follow-up appointment with her primary care physician. Please take your medications as prescribed. If you have other concerns and/or complaints please feel free to also call your primary care physician's office or return the ED for further evaluation, management, and treatment. You may take 600 mg Ibuprofen every 6 hours as needed for pain with food for no more than 2 consecutive days. You may take tylenol 1000 mg every 6 hours as needed for pain. You may take motrin and tylenol separately or at the same time. Take your medications as prescribed. If taking an antibiotic consider taking a probiotic and/or eating yogurt, but at the least, please take with food as it can cause upset stomach. Please apply the steroid cream to the areas on your chest once daily for 14 days. Please call for a follow-up appointment with your primary care physician to discuss the need for follow-up with a broadcast traffic coordinator. You have been examined and treated today on an emergency basis only. This is not a substitute for, or an effort to provide, complete comprehensive medical care. It is impossible to recognize and treat all injuries or illnesses in a single emergency department visit. It is therefore important that you follow up closely with [facility], your PCP, and/or your specialist(s). Call as soon as possible for an appointment. Thank you for your time and consideration. I look forward to speaking with you again soon. Please don't hesitate to call us if you have any questions. Problem Qualifiers Primary Impression: Allergic reaction Encounter type: subsequent encounter Qualified Codes: T78.40XD - Allergy, unspecified, subsequent encounter Additional Impressions: Cellulitis Site of cellulitis: trunk Site of cellulitis of trunk: chest wall Qualified Codes: L03.313 - Cellulitis of chest wall
[2017-03-25] MEDS ORDERED: DiphenhydrAMINE HCL 50 MG/ML VIAL IV STA (13:55)
[2017-03-25] MEDS ORDERED: ACETAMINOPHEN 500 MG TAB PO STA (13:55)
[2017-03-25] MEDS ORDERED: IBUPROFEN 200 MG TAB PO STA (13:55)
[2017-03-25] MEDS ORDERED: CEPHALEXIN MONOHYDRATE 250 MG CAP PO ONE (14:00)
[2017-03-25] MEDS ORDERED: DiphenhydrAMINE HCL 50 MG/ML VIAL IM STA (14:11)
[2017-03-25] MEDS ORDERED: OXYCODONE HCL IR 5 MG TAB (IMMEDIATE RELEASE) PO STA (15:07)
[2017-03-25] MEDS ORDERED: TRAMADOL HCL 50 MG TAB PO STA (15:07)
[2017-03-25] MEDS ORDERED: CEPH500C PO (16:22)
[2017-03-25] MEDS ORDERED: MOME0.1O TOP (16:22)
[2017-03-25 16:34] VITALS: BP 107/78; PULSE 70; TEMP 36.5; O2SAT 97
== END 2017-03-25 16:48 | disposition home or self-care (01) ==
LOC: C.EDB 12:22
DX: T78.40XA Allergy, unspecified, initial encounter (principal); X58.XXXA Exposure to other specified factors, initial encounter; L59.8 Other specified disorders of the skin and subcutaneous tissue related to radiation; L03.313 Cellulitis of chest wall; Z98.890 Other specified postprocedural states; F32.9 Major depressive disorder, single episode, unspecified; N83.209 Unspecified ovarian cyst, unspecified side; J45.909 Unspecified asthma, uncomplicated; Z98.51 Tubal ligation status; Z83.3 Family history of diabetes mellitus; Z82.49 Family history of ischemic heart disease and other diseases of the circulatory system

== ENCOUNTER 2017-05-18 13:33 | Emergency (ER) | payer BC, OTHER ==
[~2017-05-18] VITALS: Ht 157.5 cm; Wt 83.4 kg
[~2017-05-18 13:33] MED LIST changes: -DIPH25TA33 PO; -PROPRANOLOL PO
[2017-05-18 13:47] VITALS: TEMP 36.6; Ht 157.5 cm; Wt 83.4 kg
[2017-05-18] MEDS ORDERED: ACETAMINOPHEN 325 MG TAB PO STA (14:05)
--- NOTE | 2017-05-18 14:43 | DIAGNOSTIC IMAGING REPORT ---
CT OF THE HEAD WITHOUT CONTRAST CLINICAL HISTORY: softball struck L eyebrow region, ?LOC COMPARISON STUDY: MRI of the brain May 05, [address] March 11, 2014. CT DOSE: 537.48 mGy.cm TECHNIQUE: Helical axial images of the head were obtained without IV contrast. Automated exposure control was utilized for the study. A dose lowering technique was utilized adhering to the principles of ALARA. FINDINGS: No acute intracranial hemorrhage, midline shift or mass effect is present. Ventricular system is normal. Basilar cisterns are patent. There are no extra-axial collections. Gonzáles-white differentiation is maintained. There are no significant calvarial abnormalities. Visualized portions of the sinuses and mastoid air cells are clear. IMPRESSION: 1. No acute intracranial findings. 2. No calvarial fracture. Electronically signed by: Pal Patterson M.D. 05/18/2017 2:42 PM Dictated Date/Time: 05/18/2017 2:25 PM
--- NOTE | 2017-05-18 14:59 | EMERGENCY ROOM VISIT NOTE ---
History First contact with patient: 13:59 Chief Complaint: FACIAL PAIN/INJURY Stated Complaint: L EYE/FOREHEAD INJURY-DIRECT BLOW FROM SOFTBALL History of Present Illness The patient is a 42 year old female who presents to the Emergency Room with complaints of "l eye/forehead injury - direct blow from softball". The patient states that earlier today she was with her daughter in a softball less, and was struck in the left eye with softball. She believes she blacked out for. Time but did not fall to the ground. She states that her face is numb around the left eye the cheek. She feels foggy. She also feels dizzy, and nauseous. There have been no vision changes. She denies chance of . Review of Systems A complete 6-point Review of Systems was discussed with the patient, with pertinent positives and negatives listed in the History of Present Illness. All remaining Review of Systems questions can be considered negative unless otherwise specified. Past Medical/Surgical History Medical Problems: (1) Depression (2) History of small bowel obstruction (3) Infectious mononucleosis (4) Lumbago (5) ovarian cyst (6) Reactive airway disease Surgical Problems: (1) H/O reduction mammoplasty (2) H/O umbilical hernia repair (3) History of colposcopy (4) S/P appendectomy (5) S/P cholecystectomy (6) S/p decompression of small bowel (7) S/P tubal ligation Family History Diabetes mellitus MGF PGF FH: CAD (coronary artery disease) MGF Hypertension MGF Social History Smoking Status: Never Smoker Alcohol Use: occasionally Marital Status: Housing Status: lives with significant other Occupation Status: employed Current/Historical Medications Scheduled Diphenhydramine Hcl (Benadryl Allergy), 50 MG PO HS Physical Exam Vital Signs Date Time Temp Pulse Resp B/P (MAP) Pulse Ox O2 Delivery O2 Flow Rate FiO2 05/18/17 15:12 80 18 119/72 100 Room Air 05/18/17 13:47 36.6 91 16 131/84 99 Room Air Physical Exam VITAL SIGNS - Vital signs and nursing notes were reviewed. Stable. GENERAL - 42-year-old female appearing her stated age who is in no acute distress. Communicates well with provider and answers questions appropriately. SKIN - Without rashes. Mild edema surrounding the L anterior inferior forehead region. HEAD - NC/AT. EYES - PERRL with EOMI bilaterally. Sclera anicteric. No hyphema. Unremarkable eye exam. EARS - No deformities of external structures noted on gross examination bilaterally. No hemotympanum. NOSE - Midline and without cyanosis. No epistaxis or purulent drainage noted. MOUTH/OROPHARYNX - Without perioral cyanosis. EXTREMITIES - +5/5 strength noted in UE/LE bilaterally. NEUROLOGIC - Cranial nerves II through XII grossly intact. Sensory intact to light touch throughout. PSYCH - A&Ox3 and cooperates fully with examiner. Pt is very pleasant and interacts well with examiner. Medical Decision & Procedures ER Provider Diagnostic Interpretation: CT OF THE HEAD WITHOUT CONTRAST CLINICAL HISTORY: softball struck L eyebrow region, ?LOC COMPARISON STUDY: MRI of the brain May 05, [address] March 11, 2014. CT DOSE: 537.48 mGy.cm TECHNIQUE: Helical axial images of the head were obtained without IV contrast. Automated exposure control was utilized for the study. A dose lowering technique was utilized adhering to the principles of ALARA. FINDINGS: No acute intracranial hemorrhage, midline shift or mass effect is present. Ventricular system is normal. Basilar cisterns are patent. There are no extra-axial collections. Gonzáles-white differentiation is maintained. There are no significant calvarial abnormalities. Visualized portions of the sinuses and mastoid air cells are clear. IMPRESSION: 1. No acute intracranial findings. 2. No calvarial fracture. Electronically signed by: Pal Patterson M.D. 05/18/2017 2:42 PM Dictated Date/Time: 05/18/2017 2:25 PM Medications Administered Medications (Trade) Dose Ordered Sig/Annie Route Start Time Stop Time Status Last Admin Dose Admin Acetaminophen (Tylenol Tab) 650 mg NOW STAT PO 05/18/17 14:05 05/18/17 14:06 DC 05/18/17 14:12 650 MG Medical Decision Patient was seen and evaluated as above. She presents to us today status post being struck in the left side of the forehead just above the left eye by softball. She has an episode this questionable for brief loss of consciousness. Benefits versus risk of obtaining CT scan was discussed, and the decision was made to obtain a CT scan of her head. Results as above. No acute process identified on CT scan. I will make the diagnosis of concussion given her symptoms. She was educated upon such. She appears stable for outpatient management. She was given Tylenol here for her pain. She was educated upon management, educated upon worrisome symptoms which to return, had questions answered prior to discharge, and was discharged home in good condition. In the evaluation and treatment of this patient, the following differential diagnoses were considered: Concussion, Contrecoup Injury, Brain Tumor, Depression, Encephalitis, Hypothyroidism, Meningitis, CVA, TIA, Migraine, Cluster Headache, Intracranial Abnormality, Intracranial Hemorrhage, Subdural Hematoma, Subarachnoid Hemorrhage, Hydrocephalus. Impression Primary Impression: Struck by softball Additional Impression: Concussion Departure Information Dispostion Home / Self-Care Condition GOOD Referrals Scott Cortes M.D. (PCP) Patient Instructions My [facility] Additional Instructions You have been treated in the Emergency Department for a Closed Head Injury ( struck by softball on left forehead, with concussion). CT Scan of your head/brain demonstrated no acute bleeding or other abnormalities. This does not completely rule out the risk for future damage to the brain. For pain control, you can use the following [id number] medicines: - Regular strength (325mg/tab) Tylenol (acetaminophen) 2 tabs every 4-6 hours as needed. Do not exceed 12 tablets in a 24 hour period. Avoid taking more than 3 grams (3000 mg) of Tylenol per day. This includes any other sources of acetaminophen you may take on a regular basis. - Regular strength (200 mg/tab) Advil (ibuprofen) 1-2 tabs every 4-6 hours as needed. Do not exceed a dose of 3200 mg per day. You should relax in a quiet, dark place for the rest of the day. Avoid any possible triggers including: cigarette smoke, caffeine, nicotine, chocolate, wine, beer, loud noises or music, or bright lights. You should schedule a follow-up appointment in 2-3 days with your Primary Care Provider for further evaluation and treatment of your Headache. Return to the Emergency Department if your current symptoms worsen despite treatment course outlined above, or if you develop any of the following symptoms : intractable pain despite aforementioned treatment course, visual disturbances , loss of vision, unilateral weakness or facial drooping, slurring of speech, loss of coordination, or loss of consciousness. Problem Qualifiers
[2017-05-18 15:12] VITALS: BP 119/72; PULSE 80; O2SAT 100
== END 2017-05-18 15:40 | disposition home or self-care (01) ==
LOC: C.EDB 13:37 → C.EDD 15:40
DX: S06.0X9A Concussion with loss of consciousness of unspecified duration, initial encounter (principal); W22.8XXA Striking against or struck by other objects, initial encounter; J45.909 Unspecified asthma, uncomplicated; Z98.51 Tubal ligation status; Z90.49 Acquired absence of other specified parts of digestive tract; Z90.89 Acquired absence of other organs; Z98.890 Other specified postprocedural states; Z83.3 Family history of diabetes mellitus; Z82.49 Family history of ischemic heart disease and other diseases of the circulatory system

== ENCOUNTER → 2017-05-25 | Outpatient (CLI) | payer OTHER ==
[~2017-05-25] MED LIST changes: -FLUC100T4 PO; -MDRDP21 PO
--- NOTE | 2017-05-25 14:54 | DIAGNOSTIC IMAGING REPORT ---
CT OF THE ABDOMEN AND PELVIS WITHOUT CONTRAST CLINICAL HISTORY: Left lower quadrant abdominal pain. COMPARISON STUDY: CT of the abdomen and pelvis May 16, 2016. TECHNIQUE: Axial images of the abdomen and pelvis were obtained without IV contrast. Images were reviewed in the axial, sagittal, and coronal planes. A dose lowering technique was utilized adhering to the principles of ALARA. FINDINGS: Lung bases are clear. There is no biliary ductal dilatation status post cholecystectomy. Evaluation of the abdomen and pelvis is suboptimal given the lack of IV and oral contrast. There is no pneumatosis, free air or portal venous gas. Unenhanced images of the spleen, adrenal glands, kidneys and pancreas are unremarkable. There is no biliary ductal dilatation status post cholecystectomy. There is no peripancreatic infiltration. No renal, ureteral or bladder calculi are present. There is no hydronephrosis. The appendix is not visualized. A right-sided fat-containing Spigelian hernia is noted. There is no evidence for a bowel obstruction. The ovaries are not enlarged. No suspicious osseous lesions are present. The appearance of the abdomen and pelvis is unchanged. There are no enlarged lymph nodes. IMPRESSION: 1. No acute process within the abdomen or pelvis on unenhanced exam. 2. No urinary calculi or hydronephrosis. Electronically signed by: Pal Patterson M.D. 05/25/2017 2:52 PM Dictated Date/Time: 05/25/2017 2:48 PM
== END | disposition home or self-care (01) ==
LOC: C.CTS 14:30
PROVIDERS: ATTEND Family Medicine
DX: R10.32 Left lower quadrant pain (principal)

== ENCOUNTER 2017-06-17 04:06 | Emergency (ER) | payer OTHER ==
[~2017-06-17] VITALS: Ht 157.5 cm; Wt 84.6 kg
[2017-06-17 04:07] VITALS: TEMP 36.5; Ht 157.5 cm; Wt 84.6 kg
[2017-06-17] MEDS ORDERED: GI COCKTAIL PO STA (04:27)
[2017-06-17] MEDS ORDERED: BENZONATATE 100MG CAP PO ONE (04:30)
[2017-06-17] MEDS ORDERED: LIDOCAINE HCL 2% VISC SOLN 20 ML UDC ONE (04:32)
[2017-06-17] MEDS ORDERED: ALUMINUM/MAGNESIUM SUSP 30 ML UDC ONE (04:32)
[2017-06-17] MEDS ORDERED: RANITAB33 PO (04:33)
[2017-06-17] MEDS ORDERED: IBUP-103 PO (04:33)
[2017-06-17] MEDS ORDERED: CLIN150C PO (04:34)
--- NOTE | 2017-06-17 04:41 | EMERGENCY ROOM VISIT NOTE ---
History Report prepared by Mayra: Aria Davis Under the Supervision of: Dr. Kiki Cornelius D.O. First contact with patient: 04:10 Chief Complaint: RESPIRATORY PROBLEMS Stated Complaint: TROUBLE BREATHING History of Present Illness The patient is a 42 year old female who presents to the Emergency Room with complaints of recurrent sore throat since June 05, 2017. She had a negative rapid strep at that time. She states that she developed a sore throat at that time along with fever, body aches, and nausea. She was seen at [facility] June 11, 2017 and had another negative rapid strep. She was prescribed Clinodmycin and Prednisone, though she only began taking the Clindomyocin at 1800 last night. She has not started taking the Prednisone at all. She notes the reason for the delay in taking the medication was due her sore throat improving, though it seemed to worsen last night. She reports difficulty and pain with swallowing. She feels as though her voice is different. She reports associated chills. She took a hot bath and seemed to feel better afterwards, though she developed chest pain and shortness of breath. She denies any inhaler or nebulizer treatments. She reports taking Advil for her body aches, though no relief. She denies any vomiting or diarrhea. She has a history of aspiration pneumonia due to GERD. She is currently taking Zantac. She denies any autoimmune disorders. She has a history of radiation therapy due to extensive keloids from breast reduction surgery. 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 Source of History: patient Onset: June 05, 2017 Position: throat Quality: other (sore) Timing: other (recurrent) Associated Symptoms: + fevers, + chills, + chest pain, + SOB, + nausea, No vomiting, No diarrhea Note: She notes body aches and increased warmth. Review of Systems See HPI for pertinent positives & negatives. A total of 10 systems reviewed and were otherwise negative. Past Medical & Surgical Medical Problems: (1) Depression (2) History of small bowel obstruction (3) Infectious mononucleosis (4) Lumbago (5) ovarian cyst (6) Reactive airway disease Surgical Problems: (1) H/O reduction mammoplasty (2) H/O umbilical hernia repair (3) History of colposcopy (4) S/P appendectomy (5) S/P cholecystectomy (6) S/p decompression of small bowel (7) S/P tubal ligation Family History Diabetes mellitus MGF PGF FH: CAD (coronary artery disease) MGF Hypertension MGF Social History Smoking Status: Never Smoker Alcohol Use: occasionally Marital Status: Housing Status: lives with significant other Occupation Status: employed Current/Historical Medications Scheduled Benzonatate (Tessalon Perles), 100 MG PO Q8 Clindamycin Hcl (Cleocin), 1 CAP PO TID Ranitidine Hcl (Zantac), 75 MG PO DAILY Scheduled PRN Diphenhydramine Hcl (Benadryl Allergy), 50 MG PO HS PRN for Sleep Ibuprofen Tab (Advil), 6 MG PO Q4H PRN for Pain Allergies Coded Allergies: Morphine (Verified Allergy, Severe, SHORTNESS OF BREATH, 06/17/17) Tolerates hydromorphone Sulfa Antibiotics (Verified Allergy, Severe, THROAT SWELLS, 06/17/17) Penicillins (Verified Allergy, Intermediate, rash, 06/17/17) Prochlorperazine (Verified Adverse Reaction, Intermediate, anxiety, ) Fentanyl (Verified Adverse Reaction, Unknown, trouble breathing, 06/17/17) Physical Exam Vital Signs Date Time Temp Pulse Resp B/P (MAP) Pulse Ox O2 Delivery O2 Flow Rate FiO2 06/17/17 08:08 85 16 104/52 96 Room Air 06/17/17 07:53 86 06/17/17 07:17 87 18 99/67 99 Room Air 06/17/17 06:05 97 20 109/78 98 Room Air 06/17/17 05:28 99 20 94/76 99 Room Air 06/17/17 04:25 108 06/17/17 04:07 36.5 110 18 127/75 100 Room Air Physical Exam GENERAL: alert, anxious-appearing, well nourished, no distress, non-toxic EYE EXAM: normal conjunctiva, PERRL and EOM's grossly intact OROPHARYNX: no exudate, no erythema, lips, buccal mucosa, and tongue normal and mucous membranes are moist, uvula midline, no soft palate swelling, no swelling in the posterior oropharynx NECK: supple, no nuchal rigidity, no adenopathy, non-tender. No stridor. LUNGS: Clear to auscultation. Normal chest wall mechanics. No wheezes, rhonchi, or rales. HEART: no murmurs, S1 normal and S2 normal ABDOMEN: abdomen soft, non-tender, normo-active bowel sounds, no masses, no rebound or guarding. BACK: Back is symmetrical on inspection and there is no deformity, no midline tenderness, no CVA tenderness. SKIN: no rashes and no bruising UPPER EXTREMITIES: upper extremities are grossly normal. LOWER EXTREMITIES: No pitting edema. NEURO EXAM: Normal sensorium, cranial nerves II-XII grossly intact, normal speech, no gross weakness of arms, no gross weakness of legs. Medical Decision & Procedures ER Provider Diagnostic Interpretation: X-ray: I interpreted the following studies. Chest: A single view study of the chest was reviewed and showed: No cardiomegaly. No effusions. No wide mediastinum. No focal consolidation. No pulmonary edema. Laboratory Results 06/17/17 04:40 Red Blood Count 4.72, Mean Corpuscular Volume 83.9, Mean Corpuscular Hemoglobin 28.4, Mean Corpuscular Hemoglobin Concent 33.8, Mean Platelet Volume 8.9, Neutrophils (%) (Auto) 67.8, Lymphocytes (%) (Auto) 21.3, Monocytes (%) (Auto) 7.0, Eosinophils (%) (Auto) 3.4, Basophils (%) (Auto) 0.2, Neutrophils # (Auto) 8.97, Lymphocytes # (Auto) 2.81, Monocytes # (Auto) 0.92, Eosinophils # (Auto) 0.45, Basophils # (Auto) 0.03 06/17/17 04:40 Test 06/17/17 04:35 06/17/17 04:40 Influenza Type A Antigen Neg for Influ A (NEG) Influenza Type B Antigen Neg for Influ B (NEG) White Blood Count 13.22 K/uL (4.8-10.8) Red Blood Count 4.72 M/uL (4.2-5.4) Hemoglobin 13.4 g/dL (12.0-16.0) Hematocrit 39.6 % (37-47) Mean Corpuscular Volume 83.9 fL (80-100) Mean Corpuscular Hemoglobin 28.4 pg (25-34) Mean Corpuscular Hemoglobin Concent 33.8 g/dl (32-36) Platelet Count 265 K/uL (130-400) Mean Platelet Volume 8.9 fL (7.4-10.4) Neutrophils (%) (Auto) 67.8 % Lymphocytes (%) (Auto) 21.3 % Monocytes (%) (Auto) 7.0 % Eosinophils (%) (Auto) 3.4 % Basophils (%) (Auto) 0.2 % Neutrophils # (Auto) 8.97 K/uL (1.4-6.5) Lymphocytes # (Auto) 2.81 K/uL (1.2-3.4) Monocytes # (Auto) 0.92 K/uL (0.11-0.59) Eosinophils # (Auto) 0.45 K/uL (0-0.5) Basophils # (Auto) 0.03 K/uL (0-0.2) RDW Standard Deviation 39.3 fL (36.4-46.3) RDW Coefficient of Variation 13.2 % (11.5-14.5) Immature Granulocyte % (Auto) 0.3 % Immature Granulocyte # (Auto) 0.04 K/uL (0.00-0.02) D-Dimer 330 ug/L FEU (0-500) Anion Gap 10.0 mmol/L (3-11) Est Creatinine Clear Calc Drug Dose 77.9 ml/min Estimated GFR () 86.1 Estimated GFR (Non- 74.3 BUN/Creatinine Ratio 7.0 (10-20) Calcium Level 9.4 mg/dl (8.5-10.1) Magnesium Level 2.0 mg/dl (1.8-2.4) Total Bilirubin 1.1 mg/dl (0.2-1) Aspartate Amino Transf (AST/SGOT) 12 U/L (15-37) Alanine Aminotransferase (ALT/SGPT) 22 U/L (12-78) Alkaline Phosphatase 63 U/L (45-117) Troponin I < 0.015 ng/ml (0-0.045) Total Protein 8.1 gm/dl (6.4-8.2) Albumin 3.6 gm/dl (3.4-5.0) Globulin 4.5 gm/dl (2.5-4.0) Albumin/Globulin Ratio 0.8 (0.9-2) Thyroid Stimulating Hormone (TSH) 4.740 uIu/ml (0.300-4.500) Human Chorionic Gonadotropin, Qual NEG (NEG) Laboratory results per my review. Medications Administered Medications (Trade) Dose Ordered Sig/Annie Route Start Time Stop Time Status Last Admin Dose Admin Miscellaneous Medication (Gi Cocktail) 24 ml NOW STAT PO 06/17/17 04:27 06/17/17 04:30 DC 06/17/17 04:35 24 ML Benzonatate (Tessalon Perles Cap) 100 mg NOW ONCE PO 06/17/17 04:30 06/17/17 04:31 DC 06/17/17 04:34 100 MG Diphenhydramine HCl (Benadryl Inj) 25 mg NOW STAT IV 06/17/17 05:46 06/17/17 05:47 DC 06/17/17 06:01 25 MG Lorazepam (Ativan Inj) 0.5 mg NOW STAT IV 06/17/17 05:46 06/17/17 05:47 DC 06/17/17 06:02 0.5 MG Sodium Chloride 1,000 ml @ 999 mls/hr Q1H1M STAT IV 06/17/17 05:46 06/17/17 06:46 DC 06/17/17 06:01 999 MLS/HR Acetaminophen 650 mg/Empty Bag 65 ml @ 260 mls/hr NOW STAT IV 06/17/17 07:00 06/17/17 07:14 DC 06/17/17 07:17 260 MLS/HR Famotidine (Pepcid 20mg Iv Push) 20 mg ONE STAT IV 06/17/17 07:00 06/17/17 07:02 DC 06/17/17 07:13 20 MG Ketorolac Tromethamine (Toradol Inj) 30 mg NOW STAT IV 06/17/17 07:00 06/17/17 07:02 DC 06/17/17 07:13 30 MG ECG Per My Interpretation Indication: SOB/dyspnea Rate (beats per minute): 101 Rhythm: sinus tachycardia Findings: no acute ischemic change, no ectopy, other (Normal axis. Normal intervals.) ED Course 0418: The patient was evaluated in room A2. A complete history and physical exam was performed. 0427: Ordered GI Cocktail 24 ml PO 0430: Ordered Benzonatate 100 mg PO 0543: I reassessed the patient at this time. She vomited due to coughing. Repeat lung exam showed clear bilaterally. 0546: Ordered Sodium Chloride 1,000 ml @ 999 mls/hr IV, Ativan 0.5 mg IV, Benadryl 25 mg IV, and Compazine 5 mg IV 1809: The nurse states the patient does not want the Compazine because it makes her anxious. 0657: I reassessed the patient at this time. She is feeling better, though her throat still hurts. 0700: Ordered Toradol 30 mg IV, Famotidine 20 mg IV, and Acetaminophen 650 mg/ Empty Bag 65 ml @ 260 mls/hr 0745: Pt resting. VS stable. Medical Decision The patient's history was concerning for a sore throat. Differential diagnosis: Etiologies such as viral syndrome, tonsillitis, streptococcal pharyngitis, mononucleosis, peritonsillar abscess, retropharyngeal abscess, otitis, pneumonia , influenza, as well as others were entertained. Pt with two recent strep tests reported to her as negative, presentation today not consistent with strep and I did not feel this needed repeated. Exam and hx not consistent with deep space infection, guard captain, pneumonia, ludwigs angina. Pt v ricky anxious. Improved after meds here and able to rest. Coughing improved and pt reported pain improved. No hypoxia, no increased WOB. VS stable throughout. Labs and imaging reassuring. Pt already started antibiotics, advised to continue them. Discussed sx to watch/return for, treatment of sx, hydration. Did not feel pt warranted additional imaging at this time. I do not suspect FB, vascular etiology. Medication Reconcilliation Current Medication List: was personally reviewed by me Blood Pressure Screening Patient's blood pressure: Normal blood pressure Impression Primary Impression: Sore throat Additional Impressions: URI (upper respiratory infection) Anxiety Scribe Attestation The scribe's documentation has been prepared under my direction and personally reviewed by me in its entirety. I confirm that the note above accurately reflects all work, treatment, procedures, and medical decision making performed by me. Departure Information Dispostion Home / Self-Care Prescriptions Benzonatate (Tessalon Perles) 100 Mg Cap 100 MG PO Q8 for Cough, #30 CAP Prov: Kiki Cornelius, DO 06/17/17 Referrals No Doctor, Assigned (PCP) Patient Instructions My [facility] Additional Instructions Please continue your antibiotics. Please consider taking a probiotic while you are taking the antibiotic. You may use tylenol and motrin as needed for pain or fevers. You may use the cough medication as needed. Please drink plenty of water to stay well hydrated. Please avoid any acidic foods which can contribute to reflux which can irritate your throat also including soda, coffee , alcohol, tomato based products, or citrus fruits. If you have any new or concerning symptoms, please return to the emergency room. Please continue your regular medications as prescribed. Problem Qualifiers Additional Impressions: URI (upper respiratory infection) URI type: unspecified URI Qualified Codes: J06.9 - Acute upper respiratory infection, unspecified
[2017-06-17 04:52] LABS: BASO % 0.2 %; BASO ABS # 0.03 K/uL (0-0.2); EOS % 3.4 %; EOS ABS # 0.45 K/uL (0-0.5); HEMATOCRIT 39.6 % (37-47); HEMOGLOBIN 13.4 g/dL (12.0-16.0); IG# 0.04 K/uL (0.00-0.02); LYMPH % 21.3 %; LYMPH ABS # 2.81 K/uL (1.2-3.4); MEAN CELL VOLUME 83.9 fL (80-100); MEAN CORPUSCULAR HEMOGLOBIN 28.4 pg (25-34); MEAN CORPUSCULAR HGB CONC 33.8 g/dl (32-36); MEAN PLATELET VOLUME 8.9 fL (7.4-10.4); MONO ABS # 0.92 K/uL (0.11-0.59); NEUT % 67.8 %; NEUT ABS # 8.97 K/uL (1.4-6.5); PLATELET COUNT 265 K/uL (130-400); RED CELL DISTRIBUTION WIDTH CV 13.2 % (11.5-14.5); RED CELL DISTRIBUTION WIDTH SD 39.3 fL (36.4-46.3); WHITE BLOOD COUNT 13.22 K/uL (4.8-10.8)
[2017-06-17 05:08] LABS: INFLUENZA B ANTIGEN Neg for Influ B (NEG)
[2017-06-17 05:11] LABS: ALBUMIN 3.6 gm/dl (3.4-5.0); ALT/SGPT 22 U/L (12-78); AST/SGOT 12 U/L (15-37); BLOOD UREA NITROGEN 7 mg/dl (7-18); CALCIUM 9.4 mg/dl (8.5-10.1); CREATININE 0.94 mg/dl (0.60-1.20); GLUCOSE 95 mg/dl (70-99); POTASSIUM 3.8 mmol/L (3.5-5.1); SODIUM 139 mmol/L (136-145)
[2017-06-17 05:14] LABS: ALKALINE PHOSPHATASE 63 U/L (45-117); TOTAL PROTEIN 8.1 gm/dl (6.4-8.2)
[2017-06-17 05:24] LABS: CARBON DIOXIDE 24 mmol/L (21-32)
[2017-06-17] MEDS ORDERED: DiphenhydrAMINE HCL 50 MG/ML VIAL IV STA (05:46)
[2017-06-17] MEDS ORDERED: SODIUM CHLORIDE 0.9% 1000ML 1,000 ML IV STA (05:46)
[2017-06-17] MEDS ORDERED: PROCHLORPERAZINE 5 MG/ML 2 ML VIAL IV STA (05:46)
[2017-06-17] MEDS ORDERED: LORAZEPAM 2 MG/ML 1 ML VIAL IV STA (05:46)
--- NOTE | 2017-06-17 06:49 | DIAGNOSTIC IMAGING REPORT ---
CHEST ONE VIEW PORTABLE HISTORY: 42 years-old Female sob acute shortness of breath COMPARISON: Chest radiograph 12/03/2016 TECHNIQUE: Portable AP view of the chest FINDINGS: Cardiomediastinal and hilar silhouettes are within normal limits. No pneumothorax, pleural effusion, focal airspace consolidation or overt pulmonary edema. The bones of the chest appear grossly intact. Surgical clips of the right upper abdomen suggest prior cholecystectomy. IMPRESSION: No acute process. The above report was generated using voice recognition software. It may contain grammatical, syntax or spelling errors. Electronically signed by: Kelechi Latham M.D. 06/17/2017 6:47 AM Dictated Date/Time: 06/17/2017 6:46 AM
[2017-06-17] MEDS ORDERED: ACETAMINOPHEN IV 650 MG in EMPTY BAG 0 ML IV STA (07:00)
[2017-06-17] MEDS ORDERED: KETOROLAC TROMETHAMINE 30 MG/ML VIAL IV STA (07:00)
[2017-06-17] MEDS ORDERED: FAMOTIDINE 20MG/5ML IV PUSH IV STA (07:00)
[2017-06-17] MEDS ORDERED: BENZ100C84 PO (07:52)
[2017-06-17 08:08] VITALS: BP 104/52; PULSE 85; O2SAT 96
== END 2017-06-17 08:16 | disposition home or self-care (01) ==
LOC: C.EDB 04:07 → C.EDA 08:16
DX: J02.9 Acute pharyngitis, unspecified (principal); J06.9 Acute upper respiratory infection, unspecified; F41.9 Anxiety disorder, unspecified; F32.9 Major depressive disorder, single episode, unspecified; Z82.49 Family history of ischemic heart disease and other diseases of the circulatory system; Z88.0 Allergy status to penicillin; Z88.8 Allergy status to other drugs, medicaments and biological substances

== ENCOUNTER 2017-06-19 12:35 | Emergency (ER) | payer OTHER ==
[~2017-06-19] VITALS: Ht 157.5 cm; Wt 84.3 kg
[~2017-06-19 12:35] MED LIST changes: +BENZ100C84 PO; +CLIN150C PO; +IBUP-103 PO; +RANITAB33 PO
[2017-06-19] MEDS ORDERED: SODIUM CHLORIDE 0.9% 1000ML 1,000 ML IV STA (12:42)
[2017-06-19] MEDS ORDERED: FAMOTIDINE IV INJ 20 MG in DEXTROSE 5% 100ML 100 ML IV STA (12:42)
[2017-06-19 12:44] VITALS: TEMP 36.7; Ht 157.5 cm; Wt 84.3 kg
--- NOTE | 2017-06-19 12:53 | EMERGENCY ROOM VISIT NOTE ---
History Report prepared by Mayra: Juanito Gordillo Under the Supervision of: Dr. Huey Castillo D.O. First contact with patient: 12:37 Stated Complaint: ALLERGIC RXN History of Present Illness The patient is a 42 year old female who presents to the Emergency Room with complaints of constant "tightness" in her throat that started at 1100 this morning, 2 hours ago. The patient is also having difficulty swallowing. The patient states that the tightness in her throat started after a persistent coughing episode. She believes that she could hear herself wheezing when the symptoms first started. The patient states that she did have a similar allergic reaction many years ago when she first took Sulfa drugs. The patient was seen in the ER on Friday, 3 days ago and it was found that her TSH was low. She was diagnosed with Hypothyroidism and was placed on Levothyroxine. She took this medication for the first time two days ago. She did receive 125 mg of Solu- Medrol and 50 mg of Benadryl via EMS prior to arrival in the department. Source of History: patient Onset: 2 hours ago Position: throat Quality: other ("tightness") Timing: constant Associated Symptoms: + cough Note: She believes she was wheezing. Review of Systems See HPI for pertinent positives & negatives. A total of 10 systems reviewed and were otherwise negative. Past Medical & Surgical Medical Problems: (1) Depression (2) History of small bowel obstruction (3) Infectious mononucleosis (4) Lumbago (5) ovarian cyst (6) Reactive airway disease Surgical Problems: (1) H/O reduction mammoplasty (2) H/O umbilical hernia repair (3) History of colposcopy (4) S/P appendectomy (5) S/P cholecystectomy (6) S/p decompression of small bowel (7) S/P tubal ligation Family History Diabetes mellitus MGF PGF FH: CAD (coronary artery disease) MGF Hypertension MGF Social History Smoking Status: Never Smoker Alcohol Use: occasionally Marital Status: Housing Status: lives with significant other Occupation Status: employed Current/Historical Medications Scheduled Clindamycin Hcl (Cleocin), 300 MG PO TID Levothyroxine Sodium (Synthroid), 50 MCG PO DAILY Prednisone (Prednisone), 60 MG PO DAILY Ranitidine Hcl (Zantac), 150 MG PO DAILY Scheduled PRN Guaifenesin/Codeine (Robitussin-Ac Syrup), 5 ML PO Q6H PRN for Cough Ibuprofen Tab (Advil), 600 MG PO Q4H PRN for Pain Allergies Coded Allergies: Morphine (Verified Allergy, Severe, SHORTNESS OF BREATH, 06/17/17) Tolerates hydromorphone Sulfa Antibiotics (Verified Allergy, Severe, THROAT SWELLS, 06/17/17) Penicillins (Verified Allergy, Intermediate, rash, 06/17/17) Prochlorperazine (Verified Adverse Reaction, Intermediate, anxiety, ) Fentanyl (Verified Adverse Reaction, Unknown, trouble breathing, 06/17/17) Physical Exam Vital Signs Date Time Temp Pulse Resp B/P (MAP) Pulse Ox O2 Delivery O2 Flow Rate FiO2 06/19/17 14:50 78 15 109/69 96 06/19/17 14:26 78 15 109/69 96 Room Air 06/19/17 12:49 100 Room Air 06/19/17 12:44 36.7 107 26 106/67 96 Room Air 06/19/17 12:44 112 Physical Exam GENERAL: Patient is awake, alert, and in no acute distress. Patient is resting comfortably and showing no signs of anxiety EYES: The conjunctivae are clear. The pupils are round and reactive. EARS, NOSE, MOUTH AND THROAT: The nose is without any evidence of any deformity. Mucous membranes are moist tongue is midline NECK: The neck is nontender and supple. Trachea is midline, no stridor appreciated. RESPIRATORY: Normal respiratory effort is noted there is no evidence of wheezing rhonchi or rales CARDIOVASCULAR: Tachycardic rate and regular rhythm noted there no murmurs rubs or gallops normal S1 normal S2 GASTROINTESTINAL: The abdomen is soft. Bowel sounds are present in all quadrants. Abdomen is nontender MUSCULOSKELETAL/EXTREMITIES: There is no evidence of gross deformity full range of motion is noted in the hips and shoulders SKIN: There is no obvious evidence of any rash. There are no petechiae, pallor or cyanosis noted. NEUROLOGIC: Patient is awake alert and oriented x3 strength is symmetric patellar reflexes are 2+ bilaterally Medical Decision & Procedures Laboratory Results 06/19/17 13:11 Red Blood Count 4.55, Mean Corpuscular Volume 84.2, Mean Corpuscular Hemoglobin 29.0, Mean Corpuscular Hemoglobin Concent 34.5, Mean Platelet Volume 9.3, Neutrophils (%) (Auto) 88.8, Lymphocytes (%) (Auto) 8.8, Monocytes (%) (Auto) 1.7, Eosinophils (%) (Auto) 0.2, Basophils (%) (Auto) 0.2, Neutrophils # (Auto) 11.24, Lymphocytes # (Auto) 1.12, Monocytes # (Auto) 0.22, Eosinophils # (Auto) 0.03, Basophils # (Auto) 0.02 06/19/17 13:11 Test 06/19/17 13:11 06/19/17 13:23 White Blood Count 12.67 K/uL (4.8-10.8) Red Blood Count 4.55 M/uL (4.2-5.4) Hemoglobin 13.2 g/dL (12.0-16.0) Hematocrit 38.3 % (37-47) Mean Corpuscular Volume 84.2 fL (80-100) Mean Corpuscular Hemoglobin 29.0 pg (25-34) Mean Corpuscular Hemoglobin Concent 34.5 g/dl (32-36) Platelet Count 281 K/uL (130-400) Mean Platelet Volume 9.3 fL (7.4-10.4) Neutrophils (%) (Auto) 88.8 % Lymphocytes (%) (Auto) 8.8 % Monocytes (%) (Auto) 1.7 % Eosinophils (%) (Auto) 0.2 % Basophils (%) (Auto) 0.2 % Neutrophils # (Auto) 11.24 K/uL (1.4-6.5) Lymphocytes # (Auto) 1.12 K/uL (1.2-3.4) Monocytes # (Auto) 0.22 K/uL (0.11-0.59) Eosinophils # (Auto) 0.03 K/uL (0-0.5) Basophils # (Auto) 0.02 K/uL (0-0.2) RDW Standard Deviation 40.5 fL (36.4-46.3) RDW Coefficient of Variation 13.5 % (11.5-14.5) Immature Granulocyte % (Auto) 0.3 % Immature Granulocyte # (Auto) 0.04 K/uL (0.00-0.02) Anion Gap 11.0 mmol/L (3-11) Est Creatinine Clear Calc Drug Dose 65.2 ml/min Estimated GFR () 69.7 Estimated GFR (Non- 60.1 BUN/Creatinine Ratio 9.4 (10-20) Calcium Level 9.5 mg/dl (8.5-10.1) Total Bilirubin 0.9 mg/dl (0.2-1) Direct Bilirubin 0.2 mg/dl (0-0.2) Aspartate Amino Transf (AST/SGOT) 12 U/L (15-37) Alanine Aminotransferase (ALT/SGPT) 20 U/L (12-78) Alkaline Phosphatase 56 U/L (45-117) Total Protein 8.0 gm/dl (6.4-8.2) Albumin 3.5 gm/dl (3.4-5.0) Lipase 241 U/L (73-393) Urine Color YELLOW Urine Appearance CLEAR (CLEAR) Urine pH >= 9.0 (4.5-7.5) Urine Specific [place] 1.006 (1.000-1.030) Urine Protein NEG (NEG) Urine Glucose (UA) NEG (NEG) Urine Ketones NEG (NEG) Urine Occult Blood NEG (NEG) Urine Nitrite NEG (NEG) Urine Bilirubin NEG (NEG) Urine Urobilinogen NEG (NEG) Urine Leukocyte Esterase NEG (NEG) Laboratory results per my review. Medications Administered Medications (Trade) Dose Ordered Sig/Annie Route Start Time Stop Time Status Last Admin Dose Admin Famotidine 20 mg/ Dextrose 102 ml @ 200 mls/hr ONE STAT IV 06/19/17 12:42 06/19/17 13:12 DC 06/19/17 13:40 200 MLS/HR Sodium Chloride 1,000 ml @ 999 mls/hr Q1H1M STAT IV 06/19/17 12:42 06/19/17 13:42 DC 06/19/17 13:40 999 MLS/HR ED Course 1240: The patient was evaluated in room C8. A complete history and physical examination were performed. 1242: Ordered Sodium Chloride 1000 mL @ 999 mL./hr IV, Famotidine 20 mg/ Dextrose 102 mL @ 200 mL/hr IV. 1437: Upon reevaluation, the patient is resting in bed. I discussed the results and treatment plan with her. She verbalized agreement of the treatment plan. The patient was discharged home. Medical Decision Differential diagnosis: Etiologies such as allergic reaction, anaphylaxis, urticaria, Conti-Hector syndrome, toxic epidermal necrolysis, erythema multiforme, cellulitis, as well as others were entertained. Nursing notes reviewed. The patient is a 42-year-old female who presented to the emergency department for an evaluation of possible allergic reaction. She received Benadryl and Solu -Medrol prior to arrival. She was treated with IV fluids and Pepcid in the emergency department. She was reevaluated multiple times. Symptoms continue to improve. She was encouraged to continue all medications as prescribed. She was also encouraged to call her family doctor to schedule a follow-up appointment but return to the emergency department immediately if symptoms change worsen or the need arises. The patient did not appear to have anaphylaxis. She had no stridor. Medication Reconcilliation Current Medication List: was personally reviewed by me Blood Pressure Screening Patient's blood pressure: Normal blood pressure Impression Primary Impression: Allergic reaction Scribe Attestation The scribe's documentation has been prepared under my direction and personally reviewed by me in its entirety. I confirm that the note above accurately reflects all work, treatment, procedures, and medical decision making performed by me. Departure Information Dispostion Home / Self-Care Referrals No Doctor, Assigned (PCP) Forms HOME CARE DOCUMENTATION FORM, IMPORTANT VISIT INFORMATION Patient Instructions My [facility] Additional Instructions Call your family doctor to schedule a follow-up appointment. Continue all medications as prescribed. Return to the emergency department immediately if symptoms change worsen or the need arises. Problem Qualifiers Primary Impression: Allergic reaction Encounter type: initial encounter Qualified Codes: T78.40XA - Allergy, unspecified, initial encounter
[2017-06-19] MEDS ORDERED: PRED20TA PO (12:57)
[2017-06-19] MEDS ORDERED: RANI150T3 PO (12:57)
[2017-06-19] MEDS ORDERED: LEVO50TA PO (12:57)
[2017-06-19] MEDS ORDERED: GUAISYP4 PO (12:57)
[2017-06-19 13:22] LABS: BASO % 0.2 %; BASO ABS # 0.02 K/uL (0-0.2); EOS % 0.2 %; EOS ABS # 0.03 K/uL (0-0.5); HEMATOCRIT 38.3 % (37-47); HEMOGLOBIN 13.2 g/dL (12.0-16.0); IG# 0.04 K/uL (0.00-0.02); LYMPH % 8.8 %; LYMPH ABS # 1.12 K/uL (1.2-3.4); MEAN CELL VOLUME 84.2 fL (80-100); MEAN CORPUSCULAR HGB CONC 34.5 g/dl (32-36); MEAN PLATELET VOLUME 9.3 fL (7.4-10.4); MONO % 1.7 %; MONO ABS # 0.22 K/uL (0.11-0.59); NEUT % 88.8 %; NEUT ABS # 11.24 K/uL (1.4-6.5); PLATELET COUNT 281 K/uL (130-400); RED CELL DISTRIBUTION WIDTH CV 13.5 % (11.5-14.5); RED CELL DISTRIBUTION WIDTH SD 40.5 fL (36.4-46.3); WHITE BLOOD COUNT 12.67 K/uL (4.8-10.8)
[2017-06-19 13:48] LABS: ALBUMIN 3.5 gm/dl (3.4-5.0); CALCIUM 9.5 mg/dl (8.5-10.1); CREATININE 1.12 mg/dl (0.60-1.20); POTASSIUM 3.8 mmol/L (3.5-5.1)
[2017-06-19 14:50] VITALS: BP 109/69; PULSE 78; O2SAT 96
== END 2017-06-19 14:59 | disposition home or self-care (01) ==
LOC: EDBD 12:35 → C.EDC 12:36
DX: T78.40XA Allergy, unspecified, initial encounter (principal); X58.XXXA Exposure to other specified factors, initial encounter; F32.9 Major depressive disorder, single episode, unspecified; E03.9 Hypothyroidism, unspecified; J45.909 Unspecified asthma, uncomplicated; M54.5 Low back pain; Z83.3 Family history of diabetes mellitus; Z82.49 Family history of ischemic heart disease and other diseases of the circulatory system; Z79.899 Other long term (current) drug therapy; Z79.52 Long term (current) use of systemic steroids

== ENCOUNTER 2017-08-12 07:26 | Emergency (ER) | payer OTHER ==
[~2017-08-12] VITALS: Ht 157.5 cm; Wt 83.2 kg
[~2017-08-12 07:26] MED LIST changes: -BENZ100C84 PO; -DIPH25CA65 PO; +GUAISYP4 PO; +LEVO50TA PO; +PRED20TA PO; +RANI150T3 PO; -RANITAB33 PO
[2017-08-12 07:31] VITALS: TEMP 36.7; Ht 157.5 cm; Wt 83.2 kg
[2017-08-12] MEDS ORDERED: METHYLPREDNISOLONE 125 MG VIAL IV STA (07:35)
[2017-08-12] MEDS ORDERED: BACITRACIN OINT 0.9 GM PKT EXT STA (07:35)
[2017-08-12] MEDS ORDERED: DiphenhydrAMINE HCL 50 MG/ML VIAL IV STA (07:35)
[2017-08-12] MEDS ORDERED: RANITIDINE HCL 150 MG TAB PO STA (07:35)
[2017-08-12] MEDS ORDERED: SODIUM CHLORIDE 0.9% 1000ML 1,000 ML IV STA (07:35)
--- NOTE | 2017-08-12 07:38 | EMERGENCY ROOM VISIT NOTE ---
History Report prepared by Mayra: Juanito Gordillo Under the Supervision of: Dr. Alexi Machuca M.D. First contact with patient: 07:35 Chief Complaint: ALLERGIC REACTION Stated Complaint: FACIAL SWELLING-ALLERGIC REACTION History of Present Illness The patient is a 42 year old female who presents to the Emergency Room with complaints of a significant and worsening rash, likely due to a new lotion, across the patient's face that began yesterday. The patient states that she first noticed some swelling in her left eye yesterday, which has now worsened to a rash across her entire face, as well as her bilateral arms and legs. The patient states that she used a new sunscreen/lotion to protect herself from the sun on Friday, 3 days ago. She denies any associated shortness of breath or chest pain. Source of History: patient Onset: Yesterday Position: head (Face), arm (bilateral), leg (bilateral) Quality: numbness Timing: worsening Associated Symptoms: No chest pain, No SOB Review of Systems See HPI for pertinent positives & negatives. A total of 10 systems reviewed and were otherwise negative. Past Medical & Surgical Medical Problems: (1) Depression (2) History of small bowel obstruction (3) Infectious mononucleosis (4) Lumbago (5) ovarian cyst (6) Reactive airway disease Surgical Problems: (1) H/O reduction mammoplasty (2) H/O umbilical hernia repair (3) History of colposcopy (4) S/P appendectomy (5) S/P cholecystectomy (6) S/p decompression of small bowel (7) S/P tubal ligation Family History Diabetes mellitus MGF PGF FH: CAD (coronary artery disease) MGF Hypertension MGF Social History Smoking Status: Never Smoker Alcohol Use: occasionally Marital Status: Housing Status: lives with significant other Occupation Status: employed Current/Historical Medications Scheduled Bacitracin (Topical) (Bacitracin), 1 APPLN TOP BID Levothyroxine Sodium (Synthroid), 25 MCG PO DAILY Prednisone (Prednisone Tab), 0 PO DAILY Ranitidine Hcl (Zantac), 150 MG PO DAILY Ranitidine Hcl (Zantac), 150 MG PO BID Scheduled PRN Ibuprofen Tab (Advil), 600 MG PO Q4H PRN for Pain Allergies Coded Allergies: Morphine (Verified Allergy, Severe, SHORTNESS OF BREATH, 06/17/17) Tolerates hydromorphone Sulfa Antibiotics (Verified Allergy, Severe, THROAT SWELLS, 06/17/17) Penicillins (Verified Allergy, Intermediate, rash, 06/17/17) Prochlorperazine (Verified Adverse Reaction, Intermediate, anxiety, ) Fentanyl (Verified Adverse Reaction, Unknown, trouble breathing, 06/17/17) Physical Exam Vital Signs Date Time Temp Pulse Resp B/P (MAP) Pulse Ox O2 Delivery O2 Flow Rate FiO2 08/12/17 09:43 86 16 107/66 98 08/12/17 09:07 76 16 104/64 99 Room Air 08/12/17 07:31 36.7 100 18 112/72 98 Room Air 08/12/17 07:31 98 Room Air Physical Exam GENERAL: Awake, alert, well-appearing, in no acute distress HENT: There is a burn to the patient's face. There are no oral mucosal lesions. There is no blistering across the burn, and there does not appear to be any thickness. The burn appears to be 1st degree. EYES: Normal conjunctiva. Sclera non-icteric. NECK: Supple. No nuchal rigidity. FROM. No JVD. RESPIRATORY: Clear to auscultation. CARDIAC: Regular rate, normal rhythm. Extremities warm and well perfused. Pulses equal. ABDOMEN: Soft, non-distended. No tenderness to palpation. No rebound or guarding. No masses. RECTAL: Deferred. MUSCULOSKELETAL: Chest examination reveals no tenderness. The back is symmetrical on inspection without obvious abnormality. There is no CVA tenderness to palpation. No joint edema. LOWER EXTREMITIES: Calves are equal size bilaterally and non-tender. No edema. No discoloration. NEURO: Normal sensorium. No sensory or motor deficits noted. SKIN: No rash or jaundice noted. Medical Decision & Procedures Medications Administered Medications (Trade) Dose Ordered Sig/Annie Route Start Time Stop Time Status Last Admin Dose Admin Sodium Chloride 1,000 ml @ 999 mls/hr Q1H1M STAT IV 08/12/17 07:35 08/12/17 08:35 DC 08/12/17 07:50 999 MLS/HR Diphenhydramine HCl (Benadryl Inj) 50 mg NOW STAT IV 08/12/17 07:35 08/12/17 07:38 DC 08/12/17 07:50 50 MG Ranitidine HCl (zANTac TAB) 150 mg NOW STAT PO 08/12/17 07:35 08/12/17 07:38 DC 08/12/17 07:50 150 MG Methylprednisolone Sodium Succinate (Solu-Medrol IV) 125 mg NOW STAT IV 08/12/17 07:35 08/12/17 07:38 DC 08/12/17 07:50 125 MG ED Course 0731: Past medical records reviewed. The patient was evaluated in room B2. A complete history and physical examination was performed. 0735: Ordered Solu-Merol 125 mg IV, zANTac 150 mg PO, Benadryl 50 mg IV, Sodium Chloride 1000 mL @ 999 mL/hr IV. 0829: I checked on the patient. She is doing much better. 0943: Upon reexamination the patient is resting in bed. I discussed results and treatment plan with the patient. She verbalizes agreement and understanding. The patient is ready for discharge. Medical Decision Differential diagnosis: Etiologies such as contact dermatitis, viral exanthem, urticaria, allergic reaction, Conti-Hector syndrome, toxic epidermal necrolysis, erythema multiforme, cellulitis, scabies, HSV, varicella, zoster, eczema, staph scalded skin syndrome, fungal infection, as well as others were entertained. This is a 42-year-old female who presents the emergency department complaining of what appears to be a first-degree burn to her face arms and legs from a solution that the patient applied to her face. The patient has no evidence of Conti-Hector syndrome on physical examination. In the event that this was an allergic reaction, the patient is given normal saline bolus along with steroids Benadryl and Zantac. She was also given bacitracin ointment to apply to the burn. I do feel that the patient is well enough to be discharged home for follow-up with dermatology. Patient was in agreement with the treatment plan. Medication Reconcilliation Current Medication List: was personally reviewed by me Blood Pressure Screening Patient's blood pressure: Normal blood pressure Impression Primary Impression: Burn Scribe Attestation The scribe's documentation has been prepared under my direction and personally reviewed by me in its entirety. I confirm that the note above accurately reflects all work, treatment, procedures, and medical decision making performed by me. Departure Information Dispostion Home / Self-Care Prescriptions Ranitidine Hcl (ZANTAC) 150 Mg Tab 150 MG PO BID for 7 Days, #14 TAB Prov: Alexi Machuca MD 08/12/17 Prednisone (Prednisone Tab) 20 Mg Tab 0 PO DAILY, #7 TAB 2 TABS DAILY FOR 2 DAYS, THEN 1 TAB DAILY FOR 2 DAYS, THEN 1/2 TAB DAILY FOR 2 DAYS. Prov: Alexi Machuca MD 08/12/17 Bacitracin (Topical) (BACITRACIN) 500 Unit/Gm Oin 1 APPLN TOP BID for 7 Days, #30 GM Prov: Alexi Machuca MD 08/12/17 Referrals Jennifer Bhatti (PCP) Forms HOME CARE DOCUMENTATION FORM, IMPORTANT VISIT INFORMATION Patient Instructions My [facility] Additional Instructions Follow up with Dermatology Apply Bacitracin ointment twice a day You have been examined and treated today on an emergency basis only. This is not a substitute for, or an effort to provide, complete comprehensive medical care. It is impossible to recognize and treat all injuries or illnesses in a single emergency department visit. It is therefore important that you follow up closely with Dr Bhatti. Call as soon as possible for an appointment. Thank you for your time and consideration. I look forward to speaking with you again soon. Please don't hesitate to call us if you have any questions.
[2017-08-12] MEDS ORDERED: SYN25 PO (08:07)
[2017-08-12] MEDS ORDERED: PRED20TA2 PO (09:36)
[2017-08-12] MEDS ORDERED: RANI150T3 PO (09:36)
[2017-08-12] MEDS ORDERED: BACI500O11 TOP (09:36)
[2017-08-12 09:43] VITALS: BP 107/66; PULSE 86; O2SAT 98
== END 2017-08-12 09:45 | disposition home or self-care (01) ==
LOC: C.EDB 07:27
DX: T20.19XA Burn of first degree of multiple sites of head, face, and neck, initial encounter (principal); T22.191A Burn of first degree of multiple sites of right shoulder and upper limb, except wrist and hand, initial encounter; T22.192A Burn of first degree of multiple sites of left shoulder and upper limb, except wrist and hand, initial encounter; T24.191A Burn of first degree of multiple sites of right lower limb, except ankle and foot, initial encounter; T24.192A Burn of first degree of multiple sites of left lower limb, except ankle and foot, initial encounter; X58.XXXA Exposure to other specified factors, initial encounter; F32.9 Major depressive disorder, single episode, unspecified; J45.909 Unspecified asthma, uncomplicated; Z90.49 Acquired absence of other specified parts of digestive tract; Z98.51 Tubal ligation status; Z83.3 Family history of diabetes mellitus; Z82.49 Family history of ischemic heart disease and other diseases of the circulatory system; Z79.899 Other long term (current) drug therapy; Z88.5 Allergy status to narcotic agent; Z88.2 Allergy status to sulfonamides; Z88.0 Allergy status to penicillin; Z88.8 Allergy status to other drugs, medicaments and biological substances